=== PATIENT | male | born 1930 | race Caucasian/White ===

== ENCOUNTER 2018-06-19 10:51 | Emergency (ER) | payer MEDICARE, OTHER ==
[~2018-06-19] VITALS: Ht 177.8 cm; Wt 7.3 kg
[~2018-06-19 10:51] MED LIST: AML5T PO; GABA-339; GABA300C10 PO; HYDR-2601; LIS10T PO; OXY5T PO; WARF3TAB22 PO
[2018-06-19 12:10] LABS: Basophils # (auto) 0 uL; Basophils % (auto) 0.7 % (0.0-2.0); Eosinophils # (auto) 0 uL; Eosinophils % (auto) 0.4 % (0.0-7.0); Hematocrit 43.4 % (41.0-53.0); Hemoglobin 14.4 g/dL (13.5-17.5); Lymphocytes # (auto) 0.7 uL; Lymphocytes % (auto) 14.9 % (10.0-50.0); Mean Corpuscular Hemoglobin 30.1 pg (28.0-32.0); Mean Corpuscular Hgb Conc. 33.1 g/dL (32.0-36.0); Monocytes # (auto) 0.4 uL; Neutrophils # (auto) 3.5 uL; Platelet Count (auto) 209 10^3/uL (140-450); Red Blood Cells 4.77 10^6/uL (4.5-5.90); White Blood Cell 4.7 10^3/uL (4.4-10.8)
[2018-06-19 12:37] LABS: Alanine Aminotransferase 16 U/L (16-61); Albumin 4.2 g/dL (3.4-5.0); Alkaline Phosphatase 69 U/L (45-117); Anion Gap 5 (5-15); Aspartate Aminotransferase 34 U/L (15-37); BUN/Creatinine Ratio 20.4; Bilirubin, Total 0.5 mg/dL (0.2-1.0); Blood Urea Nitrogen 32 mg/dL (7-18); Calcium 8.5 mg/dL (8.5-10.1); Carbon Dioxide 24 mmol/L (21-32); Chloride 112 mmol/L (98-107); GFR African American 54 mL/min; GFR Non-African American 45 mL/min; Glucose 127 mg/dL (74-106); Magnesium 3.4 mg/dL (1.6-2.6); Potassium 3.9 mmol/L (3.5-5.1); Sodium 141 mmol/L (136-145); Total Protein 7.9 g/dL (6.4-8.2)
[2018-06-19 15:20] VITALS: BP 133/75
== END 2018-06-19 16:29 | disposition home or self-care (01) ==
LOC: EDUNIT# 10:51 → EDBD 10:51 → ER 10:56
DX: F41.9 Anxiety disorder, unspecified (principal); I48.91 Unspecified atrial fibrillation; I12.9 Hypertensive chronic kidney disease with stage 1 through stage 4 chronic kidney disease, or unspecified chronic kidney disease; N18.9 Chronic kidney disease, unspecified; G89.29 Other chronic pain; Z95.0 Presence of cardiac pacemaker
CPT/HCPCS: 36415; 80053; 83735; 84484; 85025; 93005

== ENCOUNTER 2018-08-13 04:30 | Emergency (ER) | payer OTHER ==
[~2018-08-13] VITALS: Ht 180.3 cm; Wt 77.1 kg
[2018-08-13 05:16] LABS: Basophils # (auto) 0.1 uL; Basophils % (auto) 0.8 % (0.0-2.0); Eosinophils # (auto) 0 uL; Eosinophils % (auto) 0.6 % (0.0-7.0); Hematocrit 42.1 % (41.0-53.0); Hemoglobin 14.2 g/dL (13.5-17.5); Lymphocytes # (auto) 0.9 uL; Lymphocytes % (auto) 11.9 % (10.0-50.0); Mean Corpuscular Hemoglobin 30.2 pg (28.0-32.0); Mean Corpuscular Hgb Conc. 33.6 g/dL (32.0-36.0); Mean Corpuscular Volume 89.8 fL (80.0-100.0); Monocytes # (auto) 0.6 uL; Monocytes % (auto) 7.3 % (0.0-12.0); Neutrophils # (auto) 6.2 uL; Neutrophils % (auto) 79.4 % (37.0-80.0); Platelet Count (auto) 321 10^3/uL (140-450); Red Blood Cells 4.69 10^6/uL (4.5-5.90); Red Cell Distribution Width 14.1 % (11.8-14.3); White Blood Cell 7.9 10^3/uL (4.4-10.8)
[2018-08-13 05:31] LABS: Alanine Aminotransferase 43 U/L (16-61); Albumin 3.4 g/dL (3.4-5.0); Anion Gap 9 (5-15); Aspartate Aminotransferase 40 U/L (15-37); BUN/Creatinine Ratio 15.4; Blood Urea Nitrogen 12 mg/dL (7-18); Calcium 8.7 mg/dL (8.5-10.1); Carbon Dioxide 29 mmol/L (21-32); Chloride 104 mmol/L (98-107); GFR African American 121 mL/min; GFR Non-African American 100 mL/min; Glucose 100 mg/dL (74-106); Magnesium 2.1 mg/dL (1.6-2.6); Potassium 3.4 mmol/L (3.5-5.1); Sodium 142 mmol/L (136-145)
[2018-08-13 05:36] LABS: Alkaline Phosphatase 197 U/L (45-117); Bilirubin, Total 1.2 mg/dL (0.2-1.0); Total Protein 7.4 g/dL (6.4-8.2)
[2018-08-13 05:45] LABS: Partial Thromboplastin Time 26.2 sec (23.78-33.04); Prothrombin Time 10.7 sec (9.27-12.13)
[2018-08-13] MEDS ORDERED: SODIUM CHLORIDE 0.9% 500 ML IV ONE (06:45)
[2018-08-13 06:58] VITALS: BP 144/74
[2018-08-13] MEDS ORDERED: HYDROcodone-ACET 10/325MG TAB PO ONE (07:15)
== END 2018-08-13 08:57 | disposition home or self-care (01) ==
LOC: ER 04:30 → EDBD 04:30 → ER 08:57
DX: M54.9 Dorsalgia, unspecified (principal); I48.91 Unspecified atrial fibrillation; M19.90 Unspecified osteoarthritis, unspecified site; K21.9 Gastro-esophageal reflux disease without esophagitis; I12.9 Hypertensive chronic kidney disease with stage 1 through stage 4 chronic kidney disease, or unspecified chronic kidney disease; N18.9 Chronic kidney disease, unspecified; Z79.899 Other long term (current) drug therapy; Z79.01 Long term (current) use of anticoagulants
CPT/HCPCS: 36415; 71045; 80053; 83735; 83880; 84484; 85025; 85610; 85730; 94761

== ENCOUNTER 2018-09-28 05:22 | Emergency (ER) | payer OTHER ==
[~2018-09-28] VITALS: Ht 177.8 cm; Wt 72.6 kg
[2018-09-28 06:27] LABS: Basophils # (auto) 0 uL; Basophils % (auto) 0.7 % (0.0-2.0); Eosinophils # (auto) 0.1 uL; Eosinophils % (auto) 2.3 % (0.0-7.0); Hemoglobin 15.1 g/dL (13.5-17.5); Lymphocytes # (auto) 0.9 uL; Mean Corpuscular Hemoglobin 30.1 pg (28.0-32.0); Mean Corpuscular Hgb Conc. 33.5 g/dL (32.0-36.0); Mean Corpuscular Volume 89.7 fL (80.0-100.0); Monocytes # (auto) 0.6 uL; Monocytes % (auto) 12.8 % (0.0-12.0); Neutrophils # (auto) 3.2 uL; Neutrophils % (auto) 66.2 % (37.0-80.0); Nucleated Red Blood Cells % 0.1 %; Platelet Count (auto) 242 10^3/uL (140-450); Red Blood Cells 5.01 10^6/uL (4.5-5.90); Red Cell Distribution Width 13.3 % (11.8-14.3); White Blood Cell 4.9 10^3/uL (4.4-10.8)
[2018-09-28 06:42] LABS: Albumin 4.2 g/dL (3.4-5.0); Anion Gap 8 (5-15); Blood Urea Nitrogen 17 mg/dL (7-18); Calcium 8.9 mg/dL (8.5-10.1); Carbon Dioxide 27 mmol/L (21-32); Chloride 108 mmol/L (98-107); Glucose 82 mg/dL (74-106); Magnesium 2.7 mg/dL (1.6-2.6); Potassium 3.7 mmol/L (3.5-5.1); Sodium 143 mmol/L (136-145)
[2018-09-28 06:47] LABS: Alanine Aminotransferase 20 U/L (16-61); Alkaline Phosphatase 129 U/L (45-117); Aspartate Aminotransferase 20 U/L (15-37); BUN/Creatinine Ratio 17.5; Bilirubin, Total 0.7 mg/dL (0.2-1.0); GFR African American 94 mL/min; GFR Non-African American 78 mL/min; Total Protein 7.7 g/dL (6.4-8.2)
[2018-09-28 06:55] LABS: INR 1.05 (0.9-1.15); Partial Thromboplastin Time 28.9 sec (23.78-33.04); Prothrombin Time 11.2 sec (9.27-12.13)
[2018-09-28 07:37] VITALS: BP 151/49
== END 2018-09-28 08:12 | disposition home or self-care (01) ==
LOC: ER 05:22
DX: F41.9 Anxiety disorder, unspecified (principal); I10 Essential (primary) hypertension; I48.91 Unspecified atrial fibrillation; G89.4 Chronic pain syndrome; K21.9 Gastro-esophageal reflux disease without esophagitis; M19.90 Unspecified osteoarthritis, unspecified site; Z96.89 Presence of other specified functional implants; Z79.899 Other long term (current) drug therapy
CPT/HCPCS: 36415; 71045; 80053; 83735; 83880; 84443; 84484; 85025; 85379; 85610; 85730; 93005

== ENCOUNTER 2018-10-09 22:28 | Inpatient (IN) | payer OTHER ==
[~2018-10-09] VITALS: Ht 180.3 cm; Wt 78.8 kg
[2018-10-09] MEDS ORDERED: LORazepam 0.5 MG TAB PO ONE (23:45)
[2018-10-10 00:06] LABS: Basophils # (auto) 0 uL; Basophils % (auto) 0.8 % (0.0-2.0); Eosinophils # (auto) 0.1 uL; Eosinophils % (auto) 1.4 % (0.0-7.0); Hematocrit 40.6 % (41.0-53.0); Hemoglobin 13.9 g/dL (13.5-17.5); Lymphocytes # (auto) 1.1 uL; Lymphocytes % (auto) 23.2 % (10.0-50.0); Mean Corpuscular Hemoglobin 30.3 pg (28.0-32.0); Mean Corpuscular Hgb Conc. 34.2 g/dL (32.0-36.0); Mean Corpuscular Volume 88.6 fL (80.0-100.0); Monocytes # (auto) 0.5 uL; Monocytes % (auto) 10.7 % (0.0-12.0); Neutrophils # (auto) 3.2 uL; Neutrophils % (auto) 63.9 % (37.0-80.0); Platelet Count (auto) 197 10^3/uL (140-450); Red Blood Cells 4.59 10^6/uL (4.5-5.90); Red Cell Distribution Width 13.1 % (11.8-14.3); White Blood Cell 4.9 10^3/uL (4.4-10.8)
[2018-10-10 00:25] LABS: Alanine Aminotransferase 16 U/L (16-61); Albumin 3.9 g/dL (3.4-5.0); Anion Gap 6 (5-15); Aspartate Aminotransferase 18 U/L (15-37); BUN/Creatinine Ratio 20.3; Blood Urea Nitrogen 25 mg/dL (7-18); Calcium 8.1 mg/dL (8.5-10.1); Carbon Dioxide 23 mmol/L (21-32); Chloride 112 mmol/L (98-107); GFR African American 72 mL/min; GFR Non-African American 59 mL/min; Glucose 92 mg/dL (74-106); Magnesium 2.5 mg/dL (1.6-2.6); Potassium 3.7 mmol/L (3.5-5.1); Sodium 141 mmol/L (136-145)
[2018-10-10 00:42] LABS: Alkaline Phosphatase 90 U/L (45-117); Bilirubin, Total 0.4 mg/dL (0.2-1.0); Total Protein 7.3 g/dL (6.4-8.2)
[2018-10-10] MEDS ORDERED: LEVOFLOXACIN 750MG 150 ML IV ONE (02:15)
[2018-10-10] MEDS ORDERED: ACETAMINOPHEN 500 MG TAB PO PRN (06:45)
[2018-10-10 07:17] LABS: Basophils # (auto) 0 uL; Basophils % (auto) 0.8 % (0.0-2.0); Eosinophils # (auto) 0.1 uL; Eosinophils % (auto) 1.3 % (0.0-7.0); Hematocrit 39.9 % (41.0-53.0); Hemoglobin 13.4 g/dL (13.5-17.5); Lymphocytes # (auto) 0.8 uL; Lymphocytes % (auto) 18.2 % (10.0-50.0); Mean Corpuscular Hemoglobin 29.9 pg (28.0-32.0); Mean Corpuscular Hgb Conc. 33.6 g/dL (32.0-36.0); Monocytes # (auto) 0.4 uL; Monocytes % (auto) 9.7 % (0.0-12.0); Neutrophils # (auto) 3.1 uL; Nucleated Red Blood Cells % 0.1 %; Platelet Count (auto) 190 10^3/uL (140-450); Red Blood Cells 4.49 10^6/uL (4.5-5.90); Red Cell Distribution Width 13.3 % (11.8-14.3); White Blood Cell 4.5 10^3/uL (4.4-10.8)
[2018-10-10 07:42] LABS: INR 1.27 (0.9-1.15); Partial Thromboplastin Time 31.9 sec (23.78-33.04); Prothrombin Time 13.4 sec (9.27-12.13)
[2018-10-10 08:59] VITALS: BP 149/78
[2018-10-10] MEDS: LACTULOSE 20Gm/30ML SOLN PO PRN (09:36)
[2018-10-10] MEDS: cefTRIAXone 1GM/50ML D5W 50 ML IV SCH (09:37)
[2018-10-10] MEDS: LISINOPRIL 10 MG TAB PO SCH (09:37)
[2018-10-10] MEDS: AZITHROMYCIN 500MG/ 250ML 250 ML IV SCH (09:38)
[2018-10-10] MEDS ORDERED: amLODIPine BESYLATE 5 MG TAB PO SCH (10:00)
[2018-10-10 12:23] VITALS: BP 138/76
[2018-10-10] MEDS: HYDROcodone-ACET 5/325MG TAB PO PRN (15:22)
[2018-10-10 16:35] VITALS: BP 138/76
[2018-10-10] MEDS ORDERED: WARFARIN SODIUM 5 MG TAB PO ONE (17:00)
[2018-10-10 17:18] LABS: Urine Bacteria NONE SEEN /hpf (None Seen); Urine Blood Negative /uL (Negative); Urine Hyaline Cast FEW /lpf (0 - 2); Urine Mucus FEW (None Seen); Urine Specific Gravity 1.022 (1.001-1.035); Urine WBC 1 /hpf (0 - 3)
[2018-10-10 17:24] LABS: Amphetamine Screen, Urine NEGATIVE (NEGATIVE); Barbiturate Scree,Urine NEGATIVE (NEGATIVE); Benzodiazephine Screen, Urine NEGATIVE (NEGATIVE); Cannabinoid Screen, Urine NEGATIVE (NEGATIVE); Cocaine Screen, Urine NEGATIVE (NEGATIVE); Opiate Scree,Urine POSITIVE (NEGATIVE); Phencyclidine Screen, Urine NEGATIVE (NEGATIVE)
[2018-10-10 17:49] LABS: Alcohol, Urine < 3.0 mg/dL (0-5)
[2018-10-10] MEDS: GABAPENTIN 400 MG CAP PO SCH (21:33)
[2018-10-10 22:00] VITALS: BP 119/67
[2018-10-11 05:00] VITALS: BP 140/61
[2018-10-11] MEDS: GABAPENTIN 400 MG CAP PO SCH ×3 (05:44→22:15)
[2018-10-11 06:19] LABS: INR 1.52 (0.9-1.15); Partial Thromboplastin Time 34.5 sec (23.78-33.04); Prothrombin Time 15.9 sec (9.27-12.13)
[2018-10-11 09:04] VITALS: BP 100/62
[2018-10-11] MEDS: cefTRIAXone 1GM/50ML D5W 50 ML IV SCH (10:30)
[2018-10-11] MEDS: AZITHROMYCIN 500MG/ 250ML 250 ML IV SCH (11:24)
[2018-10-11] MEDS: amLODIPine BESYLATE 5 MG TAB PO SCH (11:25)
[2018-10-11] MEDS: LISINOPRIL 10 MG TAB PO SCH (11:26)
[2018-10-11 13:15] VITALS: BP 112/71
[2018-10-11 16:51] VITALS: BP 125/78
[2018-10-11] MEDS ORDERED: WARFARIN SODIUM 2 MG TAB PO ONE (17:00)
[2018-10-11 22:00] VITALS: BP 110/71
[2018-10-12 05:07] VITALS: BP 102/63
[2018-10-12 05:36] LABS: Basophils # (auto) 0 uL; Basophils % (auto) 0.4 % (0.0-2.0); Eosinophils # (auto) 0.1 uL; Hematocrit 40.1 % (41.0-53.0); Hemoglobin 13.8 g/dL (13.5-17.5); Lymphocytes # (auto) 0.8 uL; Lymphocytes % (auto) 13.6 % (10.0-50.0); Mean Corpuscular Hemoglobin 30.5 pg (28.0-32.0); Mean Corpuscular Hgb Conc. 34.5 g/dL (32.0-36.0); Mean Corpuscular Volume 88.4 fL (80.0-100.0); Monocytes # (auto) 0.6 uL; Monocytes % (auto) 10.2 % (0.0-12.0); Neutrophils # (auto) 4.5 uL; Neutrophils % (auto) 74.8 % (37.0-80.0); Platelet Count (auto) 181 10^3/uL (140-450); Red Blood Cells 4.53 10^6/uL (4.5-5.90); Red Cell Distribution Width 13.6 % (11.8-14.3)
[2018-10-12 05:45] LABS: INR 1.59 (0.9-1.15); Partial Thromboplastin Time 34.3 sec (23.78-33.04); Prothrombin Time 16.6 sec (9.27-12.13)
[2018-10-12] MEDS: GABAPENTIN 400 MG CAP PO SCH ×3 (06:19→21:45)
[2018-10-12 08:35] VITALS: BP 132/70
[2018-10-12] MEDS ORDERED: PANT40T PO (08:53)
[2018-10-12] MEDS ORDERED: AZIT250T7 PO (08:53)
[2018-10-12] MEDS ORDERED: PANTOPRAZOLE 40 MG TAB PO ONE (09:00)
[2018-10-12 09:46] VITALS: BP 132/70
[2018-10-12] MEDS: LISINOPRIL 10 MG TAB PO SCH (09:50)
[2018-10-12] MEDS: amLODIPine BESYLATE 5 MG TAB PO SCH (09:50)
[2018-10-12] MEDS: HYDROcodone-ACET 5/325MG TAB PO PRN ×2 (09:55→20:00)
[2018-10-12] MEDS ORDERED: AZITHROMYCIN 250 MG TAB PO SCH (10:00)
[2018-10-12] MEDS: LACTULOSE 20Gm/30ML SOLN PO PRN (10:45)
[2018-10-12 13:00] VITALS: BP 124/83
[2018-10-12] MEDS ORDERED: IODIXANOL 320MG/ML 100ML BTL IV ONE (13:02)
[2018-10-12] MEDS ORDERED: GASTROGRAFIN 30 ML SOL ONE (13:07)
[2018-10-12] MEDS ORDERED: SODIUM CHLORIDE 0.9% 1,000 ML IV ONE (13:30)
[2018-10-12] MEDS: MORPHINE SULFATE 4 MG/ML SYR/VIAL IV PRN ×2 (13:38→18:37)
[2018-10-12 14:19] LABS: Basophils # (auto) 0 uL; Basophils % (auto) 0.1 % (0.0-2.0); Eosinophils # (auto) 0 uL; Hematocrit 42.2 % (41.0-53.0); Hemoglobin 14.3 g/dL (13.5-17.5); Lymphocytes # (auto) 0.3 uL; Lymphocytes % (auto) 2.8 % (10.0-50.0); Mean Corpuscular Hemoglobin 29.9 pg (28.0-32.0); Mean Corpuscular Hgb Conc. 33.9 g/dL (32.0-36.0); Mean Corpuscular Volume 88.1 fL (80.0-100.0); Monocytes # (auto) 0.9 uL; Monocytes % (auto) 7.4 % (0.0-12.0); Neutrophils # (auto) 10.8 uL; Neutrophils % (auto) 89.7 % (37.0-80.0); Platelet Count (auto) 205 10^3/uL (140-450); Red Blood Cells 4.79 10^6/uL (4.5-5.90); Red Cell Distribution Width 13.5 % (11.8-14.3); White Blood Cell 12.1 10^3/uL (4.4-10.8)
[2018-10-12 14:38] LABS: Albumin 4.2 g/dL (3.4-5.0); BUN/Creatinine Ratio 31.6; Calcium 8.8 mg/dL (8.5-10.1); Potassium 3.6 mmol/L (3.5-5.1)
[2018-10-12 14:41] LABS: Total Protein 7.6 g/dL (6.4-8.2)
[2018-10-12 16:35] VITALS: BP 130/80
[2018-10-12] MEDS ORDERED: WARFARIN SODIUM 5 MG TAB PO ONE (17:00)
[2018-10-12] MEDS: SOD CHL 0.9%/ KCL 20MEQ 1,000 ML IV SCH (17:44)
[2018-10-12] MEDS ORDERED: cefTRIAXone 1GM/50ML D5W 50 ML IV ONE (17:45)
[2018-10-12] MEDS: metroNIDAZOLE 500MG/100ML 100 ML IV SCH (21:45)
[2018-10-12 22:28] VITALS: BP 120/60
[2018-10-13] VITALS (9 sets, daily range): BP systolic 109–140; BP diastolic 60–77
[2018-10-13 05:33] LABS: Basophils # (auto) 0 uL; Basophils % (auto) 0.1 % (0.0-2.0); Eosinophils # (auto) 0 uL; Hematocrit 40.5 % (41.0-53.0); Lymphocytes # (auto) 0.7 uL; Lymphocytes % (auto) 7.1 % (10.0-50.0); Mean Corpuscular Hemoglobin 30.5 pg (28.0-32.0); Mean Corpuscular Hgb Conc. 34.5 g/dL (32.0-36.0); Mean Corpuscular Volume 88.2 fL (80.0-100.0); Neutrophils # (auto) 7.5 uL; Neutrophils % (auto) 81.8 % (37.0-80.0); Nucleated Red Blood Cells % 0.1 %; Platelet Count (auto) 181 10^3/uL (140-450); Red Blood Cells 4.59 10^6/uL (4.5-5.90); Red Cell Distribution Width 13.3 % (11.8-14.3); White Blood Cell 9.2 10^3/uL (4.4-10.8)
[2018-10-13] MEDS: GABAPENTIN 400 MG CAP PO SCH ×3 (05:34→21:42)
[2018-10-13] MEDS: metroNIDAZOLE 500MG/100ML 100 ML IV SCH ×3 (05:34→21:42)
[2018-10-13 05:43] LABS: INR 2.2 (0.9-1.15); Prothrombin Time 22.5 sec (9.27-12.13)
[2018-10-13 05:47] LABS: Calcium 8.7 mg/dL (8.5-10.1); Potassium 3.6 mmol/L (3.5-5.1)
[2018-10-13 05:51] LABS: Albumin 3.9 g/dL (3.4-5.0); BUN/Creatinine Ratio 27.1
[2018-10-13 05:53] LABS: Bilirubin, Total 5.1 mg/dL (0.2-1.0); Total Protein 7.1 g/dL (6.4-8.2)
[2018-10-13] MEDS: SOD CHL 0.9%/ KCL 20MEQ 1,000 ML IV SCH ×2 (06:50→21:51)
[2018-10-13] MEDS: amLODIPine BESYLATE 5 MG TAB PO SCH (09:30)
[2018-10-13] MEDS: LISINOPRIL 10 MG TAB PO SCH (09:30)
[2018-10-13] MEDS: HYDROcodone-ACET 5/325MG TAB PO PRN ×2 (09:31→16:18)
[2018-10-13] MEDS: cefTRIAXone 1GM/50ML D5W 50 ML IV SCH (09:31)
[2018-10-13] MEDS ORDERED: PANTOPRAZOLE 40 MG/10 ML VIAL IV ONE (11:15)
[2018-10-14] VITALS (9 sets, daily range): BP systolic 121–138; BP diastolic 55–101
[2018-10-14] MEDS: HYDROcodone-ACET 5/325MG TAB PO PRN ×2 (00:06→03:10)
[2018-10-14] MEDS: GABAPENTIN 400 MG CAP PO SCH ×3 (05:31→21:20)
[2018-10-14] MEDS: metroNIDAZOLE 500MG/100ML 100 ML IV SCH ×3 (05:31→21:19)
[2018-10-14 05:50] LABS: Basophils # (auto) 0 uL; Basophils % (auto) 0.2 % (0.0-2.0); Eosinophils # (auto) 0 uL; Eosinophils % (auto) 0.2 % (0.0-7.0); Hematocrit 37.8 % (41.0-53.0); Lymphocytes # (auto) 0.4 uL; Lymphocytes % (auto) 6.4 % (10.0-50.0); Mean Corpuscular Hemoglobin 30.4 pg (28.0-32.0); Mean Corpuscular Hgb Conc. 34.5 g/dL (32.0-36.0); Mean Corpuscular Volume 88.2 fL (80.0-100.0); Monocytes # (auto) 0.8 uL; Monocytes % (auto) 11.7 % (0.0-12.0); Neutrophils # (auto) 5.7 uL; Neutrophils % (auto) 81.5 % (37.0-80.0); Platelet Count (auto) 153 10^3/uL (140-450); Red Blood Cells 4.29 10^6/uL (4.5-5.90); Red Cell Distribution Width 13.6 % (11.8-14.3)
[2018-10-14 06:04] LABS: Albumin 3.4 g/dL (3.4-5.0); Calcium 8.3 mg/dL (8.5-10.1); Potassium 3.4 mmol/L (3.5-5.1)
[2018-10-14 06:07] LABS: BUN/Creatinine Ratio 20.3
[2018-10-14 06:10] LABS: Total Protein 6.4 g/dL (6.4-8.2)
[2018-10-14 06:13] LABS: INR 2.24 (0.9-1.15); Partial Thromboplastin Time 38.7 sec (23.78-33.04); Prothrombin Time 22.9 sec (9.27-12.13)
[2018-10-14] MEDS: SOD CHL 0.9%/ KCL 20MEQ 1,000 ML IV SCH ×2 (09:15→22:35)
[2018-10-14] MEDS: cefTRIAXone 1GM/50ML D5W 50 ML IV SCH (09:22)
[2018-10-14] MEDS: LISINOPRIL 10 MG TAB PO SCH (09:22)
[2018-10-14] MEDS: PANTOPRAZOLE 40 MG/10 ML VIAL IV SCH (09:22)
[2018-10-14] MEDS: amLODIPine BESYLATE 5 MG TAB PO SCH (09:23)
[2018-10-14] MEDS: MORPHINE SULFATE 4 MG/ML SYR/VIAL IV PRN ×3 (10:35→23:04)
[2018-10-15] VITALS (15 sets, daily range): BP systolic 106–147; BP diastolic 53–89
[2018-10-15] MEDS: SOD CHL 0.9%/ KCL 20MEQ 1,000 ML IV SCH (04:59)
[2018-10-15 05:59] LABS: Basophils # (auto) 0 uL; Basophils % (auto) 0.5 % (0.0-2.0); Eosinophils # (auto) 0 uL; Eosinophils % (auto) 0.7 % (0.0-7.0); Hematocrit 37.9 % (41.0-53.0); Hemoglobin 12.7 g/dL (13.5-17.5); Lymphocytes # (auto) 0.8 uL; Mean Corpuscular Hemoglobin 29.7 pg (28.0-32.0); Mean Corpuscular Hgb Conc. 33.6 g/dL (32.0-36.0); Mean Corpuscular Volume 88.5 fL (80.0-100.0); Monocytes # (auto) 0.8 uL; Monocytes % (auto) 13.4 % (0.0-12.0); Neutrophils # (auto) 4.6 uL; Neutrophils % (auto) 73.4 % (37.0-80.0); Platelet Count (auto) 158 10^3/uL (140-450); Red Blood Cells 4.28 10^6/uL (4.5-5.90); Red Cell Distribution Width 13.5 % (11.8-14.3); White Blood Cell 6.3 10^3/uL (4.4-10.8)
[2018-10-15] MEDS: metroNIDAZOLE 500MG/100ML 100 ML IV SCH ×3 (06:07→21:26)
[2018-10-15] MEDS: GABAPENTIN 400 MG CAP PO SCH ×3 (06:07→21:26)
[2018-10-15 06:14] LABS: Albumin 3.3 g/dL (3.4-5.0); Calcium 8.5 mg/dL (8.5-10.1); Potassium 3.2 mmol/L (3.5-5.1)
[2018-10-15 06:18] LABS: BUN/Creatinine Ratio 19.7; Bilirubin, Total 7.4 mg/dL (0.2-1.0); Total Protein 6.4 g/dL (6.4-8.2)
[2018-10-15] MEDS: PANTOPRAZOLE 40 MG/10 ML VIAL IV SCH (09:35)
[2018-10-15] MEDS: cefTRIAXone 1GM/50ML D5W 50 ML IV SCH (09:35)
[2018-10-15] MEDS: LISINOPRIL 10 MG TAB PO SCH (09:36)
[2018-10-15] MEDS: amLODIPine BESYLATE 5 MG TAB PO SCH (09:36)
[2018-10-15] MEDS: MORPHINE SULFATE 4 MG/ML SYR/VIAL IV PRN ×2 (09:44→19:37)
[2018-10-15] MEDS: HYDROcodone-ACET 5/325MG TAB PO PRN ×2 (13:37→21:47)
[2018-10-15 14:06] LABS: INR 2.06 (0.9-1.15); Partial Thromboplastin Time 39.7 sec (23.78-33.04); Prothrombin Time 21.2 sec (9.27-12.13)
[2018-10-15] MEDS ORDERED: LORazepam 0.5 MG TAB PO PRN (14:45)
[2018-10-15] MEDS: LORazepam 0.5 MG TAB PO PRN (15:14)
[2018-10-16] MEDS: LORazepam 0.5 MG TAB PO PRN ×2 (00:27→18:30)
[2018-10-16] MEDS: SOD CHL 0.9%/ KCL 20MEQ 1,000 ML IV SCH ×2 (02:03→14:35)
[2018-10-16] MEDS: MORPHINE SULFATE 4 MG/ML SYR/VIAL IV PRN ×3 (03:58→20:33)
[2018-10-16 04:42] VITALS: BP 123/67
[2018-10-16] MEDS: GABAPENTIN 400 MG CAP PO SCH ×4 (05:24→21:25)
[2018-10-16] MEDS: metroNIDAZOLE 500MG/100ML 100 ML IV SCH ×4 (05:24→21:25)
[2018-10-16 06:42] LABS: Basophils # (auto) 0 uL; Basophils % (auto) 0.5 % (0.0-2.0); Eosinophils # (auto) 0.1 uL; Eosinophils % (auto) 2.4 % (0.0-7.0); Hematocrit 37.6 % (41.0-53.0); Lymphocytes # (auto) 0.6 uL; Lymphocytes % (auto) 13.5 % (10.0-50.0); Mean Corpuscular Hemoglobin 30.6 pg (28.0-32.0); Mean Corpuscular Hgb Conc. 34.5 g/dL (32.0-36.0); Mean Corpuscular Volume 88.7 fL (80.0-100.0); Monocytes # (auto) 0.6 uL; Monocytes % (auto) 13.3 % (0.0-12.0); Neutrophils # (auto) 3.2 uL; Neutrophils % (auto) 70.3 % (37.0-80.0); Platelet Count (auto) 184 10^3/uL (140-450); Red Blood Cells 4.24 10^6/uL (4.5-5.90); Red Cell Distribution Width 13.6 % (11.8-14.3); White Blood Cell 4.6 10^3/uL (4.4-10.8)
[2018-10-16 06:47] LABS: INR 1.97 (0.9-1.15); Partial Thromboplastin Time 38.8 sec (23.78-33.04); Prothrombin Time 20.3 sec (9.27-12.13)
[2018-10-16] MEDS: HYDROcodone-ACET 5/325MG TAB PO PRN (06:50)
[2018-10-16 06:51] LABS: Potassium 3.1 mmol/L (3.5-5.1)
[2018-10-16 06:56] LABS: Albumin 3.5 g/dL (3.4-5.0); BUN/Creatinine Ratio 14.7; Bilirubin, Total 9.7 mg/dL (0.2-1.0); Calcium 8.7 mg/dL (8.5-10.1); Total Protein 6.6 g/dL (6.4-8.2)
[2018-10-16 08:00] VITALS: BP 124/69
[2018-10-16 08:23] VITALS: BP 124/69
[2018-10-16] MEDS ORDERED: HYDROcodone-ACET 5/325MG TAB PO PRN (09:15)
[2018-10-16] MEDS: amLODIPine BESYLATE 5 MG TAB PO SCH (09:30)
[2018-10-16] MEDS: PANTOPRAZOLE 40 MG/10 ML VIAL IV SCH (09:30)
[2018-10-16] MEDS: cefTRIAXone 1GM/50ML D5W 50 ML IV SCH (09:30)
[2018-10-16] MEDS: LISINOPRIL 10 MG TAB PO SCH (09:31)
[2018-10-16] MEDS ORDERED: MIDAZOLAM HCL 1MG/1ML-2 ML VIAL ONE (12:04)
[2018-10-16] MEDS ORDERED: fentaNYL CITRATE 100 MCG/2 ML VL ONE (12:04)
[2018-10-16] MEDS ORDERED: SUCCINYLCHOLINE CHLORIDE 20 MG/ML 10ML VIAL IV ONE (12:15)
[2018-10-16] MEDS ORDERED: ETOMIDATE (2MG/ML) 20ML VIAL IV ONE (12:25)
[2018-10-16] MEDS ORDERED: DEXAMETHASONE SOD PHOS 10MG/1ML VIAL INJ ONE (12:25)
[2018-10-16 12:26] VITALS: BP 130/76
[2018-10-16] MEDS ORDERED: IOHEXOL 300 MG/ML 100ML BOTTLE IJ ONE (12:26)
[2018-10-16] MEDS ORDERED: PHENYLEPHRINE HCL 10 MG/ML VL ONE (13:21)
[2018-10-16] MEDS ORDERED: HYDROmorphone HCL 2 MG/ML VL IV PRN (14:15)
[2018-10-16] MEDS ORDERED: MORPHINE SULFATE 4 MG/ML SYR/VIAL IV PRN (14:15)
[2018-10-16] MEDS ORDERED: KETOROLAC TROMETH 30 MG/ML 1ML VIAL IV ONE (14:15)
[2018-10-16] MEDS ORDERED: MIDAZOLAM HCL 1MG/1ML-2 ML VIAL IV PRN (14:15)
[2018-10-16] MEDS ORDERED: ePHEDrine SULFATE 50 MG/ML AMP IV PRN (14:15)
[2018-10-16] MEDS ORDERED: ONDANSETRON HCL 4 MG/2 ML VIAL IV ONE (14:15)
[2018-10-16] MEDS ORDERED: LABETALOL HCL 5 MG/ML 4ML SYRINGE IV PRN (14:15)
[2018-10-16] MEDS ORDERED: PHYTONADIONE (VIT K)10 MG/ML 1ML VIAL SUBCUT ONE (15:15)
[2018-10-16] MEDS ORDERED: MORPHINE SULFATE 4 MG/ML SYR/VIAL IV ONE (16:00)
[2018-10-16 16:32] VITALS: BP 134/73
[2018-10-16 22:00] VITALS: BP 125/75
[2018-10-17] MEDS: MORPHINE SULFATE 4 MG/ML SYR/VIAL IV PRN ×5 (00:43→20:54)
[2018-10-17] MEDS: SOD CHL 0.9%/ KCL 20MEQ 1,000 ML IV SCH ×2 (04:06→17:15)
[2018-10-17 05:00] VITALS: BP 123/70
[2018-10-17] MEDS: metroNIDAZOLE 500MG/100ML 100 ML IV SCH ×3 (05:45→21:47)
[2018-10-17] MEDS: GABAPENTIN 400 MG CAP PO SCH ×4 (05:45→21:47)
[2018-10-17 07:00] LABS: Basophils # (auto) 0 uL; Basophils % (auto) 0.1 % (0.0-2.0); Eosinophils # (auto) 0 uL; Hemoglobin 12.4 g/dL (13.5-17.5); Lymphocytes # (auto) 0.3 uL; Lymphocytes % (auto) 13.3 % (10.0-50.0); Mean Corpuscular Hemoglobin 30.6 pg (28.0-32.0); Mean Corpuscular Hgb Conc. 34.5 g/dL (32.0-36.0); Mean Corpuscular Volume 88.6 fL (80.0-100.0); Monocytes # (auto) 0.2 uL; Monocytes % (auto) 6.6 % (0.0-12.0); Nucleated Red Blood Cells % 0.2 %; Platelet Count (auto) 180 10^3/uL (140-450); Red Blood Cells 4.06 10^6/uL (4.5-5.90); Red Cell Distribution Width 13.6 % (11.8-14.3); White Blood Cell 2.5 10^3/uL (4.4-10.8)
[2018-10-17 07:14] LABS: INR 1.3 (0.9-1.15); Partial Thromboplastin Time 32.8 sec (23.78-33.04); Prothrombin Time 13.7 sec (9.27-12.13)
[2018-10-17 07:23] LABS: Calcium 8.3 mg/dL (8.5-10.1); Potassium 3.4 mmol/L (3.5-5.1)
[2018-10-17 07:25] LABS: Bilirubin, Total 7.2 mg/dL (0.2-1.0)
[2018-10-17 07:28] LABS: BUN/Creatinine Ratio 31.1; Bilirubin, Total 7.1 mg/dL (0.2-1.0); Total Protein 6.1 g/dL (6.4-8.2)
[2018-10-17 08:00] VITALS: BP 131/76
[2018-10-17] MEDS: LORazepam 0.5 MG TAB PO PRN (08:38)
[2018-10-17] MEDS: cefTRIAXone 1GM/50ML D5W 50 ML IV SCH (08:38)
[2018-10-17] MEDS: amLODIPine BESYLATE 5 MG TAB PO SCH (09:46)
[2018-10-17] MEDS: LISINOPRIL 10 MG TAB PO SCH (09:46)
[2018-10-17] MEDS: PANTOPRAZOLE 40 MG/10 ML VIAL IV SCH (09:46)
[2018-10-17 11:42] VITALS: BP 130/80
[2018-10-17 16:32] VITALS: BP 142/81
[2018-10-17 22:00] VITALS: BP 110/63
[2018-10-18] MEDS: MORPHINE SULFATE 4 MG/ML SYR/VIAL IV PRN ×4 (02:44→22:45)
[2018-10-18] MEDS: SOD CHL 0.9%/ KCL 20MEQ 1,000 ML IV SCH ×2 (02:56→20:44)
[2018-10-18 05:00] VITALS: BP 110/56
[2018-10-18] MEDS: metroNIDAZOLE 500MG/100ML 100 ML IV SCH ×4 (05:37→22:44)
[2018-10-18] MEDS: GABAPENTIN 400 MG CAP PO SCH ×4 (05:47→22:44)
[2018-10-18 05:56] LABS: Basophils # (auto) 0 uL; Basophils % (auto) 0.1 % (0.0-2.0); Eosinophils # (auto) 0 uL; Eosinophils % (auto) 0.5 % (0.0-7.0); Hematocrit 33.2 % (41.0-53.0); Hemoglobin 11.3 g/dL (13.5-17.5); Lymphocytes # (auto) 0.6 uL; Lymphocytes % (auto) 12.1 % (10.0-50.0); Mean Corpuscular Hemoglobin 30.2 pg (28.0-32.0); Mean Corpuscular Volume 88.7 fL (80.0-100.0); Monocytes # (auto) 0.5 uL; Monocytes % (auto) 9.7 % (0.0-12.0); Neutrophils # (auto) 3.9 uL; Neutrophils % (auto) 77.6 % (37.0-80.0); Nucleated Red Blood Cells % 0.1 %; Platelet Count (auto) 195 10^3/uL (140-450); Red Blood Cells 3.74 10^6/uL (4.5-5.90); Red Cell Distribution Width 13.6 % (11.8-14.3)
[2018-10-18 06:18] LABS: Albumin 2.9 g/dL (3.4-5.0); Calcium 7.8 mg/dL (8.5-10.1); Potassium 3.1 mmol/L (3.5-5.1)
[2018-10-18 06:20] LABS: BUN/Creatinine Ratio 42.6
[2018-10-18 06:22] LABS: Bilirubin, Total 4.7 mg/dL (0.2-1.0); Total Protein 5.7 g/dL (6.4-8.2)
[2018-10-18 08:00] VITALS: BP 142/59
[2018-10-18 09:00] VITALS: BP 114/59
[2018-10-18] MEDS ORDERED: POTASSIUM CHLORIDE 40 MEQ, LIDOCAINE 1% (LOCAL ANESTH.) 4 ML in SODIUM CHL 0.9% 100 ML IV ONE (09:15)
[2018-10-18] MEDS: LISINOPRIL 10 MG TAB PO SCH (09:16)
[2018-10-18] MEDS: PANTOPRAZOLE 40 MG/10 ML VIAL IV SCH (09:17)
[2018-10-18] MEDS: amLODIPine BESYLATE 5 MG TAB PO SCH (09:17)
[2018-10-18] MEDS: cefTRIAXone 1GM/50ML D5W 50 ML IV SCH (09:17)
[2018-10-18 12:54] VITALS: BP 113/63
[2018-10-18] MEDS ORDERED: POTASSIUM CHL 20 Meq TABLET PO ONE (16:00)
[2018-10-18 17:00] VITALS: BP 124/68
[2018-10-18] MEDS: POTASSIUM CHL 20MEQ/100ML 100 ML IV SCH ×2 (18:07→20:43)
[2018-10-18] MEDS ORDERED: POTASSIUM CHL 20MEQ/100ML 100 ML IV ONE (20:42)
[2018-10-18 21:30] VITALS: BP 116/59
[2018-10-19] MEDS: MORPHINE SULFATE 4 MG/ML SYR/VIAL IV PRN ×2 (03:03→07:36)
[2018-10-19 05:00] VITALS: BP 120/75
[2018-10-19] MEDS: GABAPENTIN 400 MG CAP PO SCH ×3 (05:24→22:12)
[2018-10-19] MEDS: metroNIDAZOLE 500MG/100ML 100 ML IV SCH ×3 (05:24→22:12)
[2018-10-19 05:54] LABS: Basophils # (auto) 0 uL; Basophils % (auto) 0.8 % (0.0-2.0); Eosinophils # (auto) 0.1 uL; Eosinophils % (auto) 1.6 % (0.0-7.0); Hematocrit 33.9 % (41.0-53.0); Hemoglobin 11.6 g/dL (13.5-17.5); Lymphocytes # (auto) 0.7 uL; Lymphocytes % (auto) 18.5 % (10.0-50.0); Mean Corpuscular Hemoglobin 30.6 pg (28.0-32.0); Mean Corpuscular Hgb Conc. 34.2 g/dL (32.0-36.0); Mean Corpuscular Volume 89.4 fL (80.0-100.0); Monocytes # (auto) 0.6 uL; Monocytes % (auto) 14.3 % (0.0-12.0); Neutrophils # (auto) 2.5 uL; Neutrophils % (auto) 64.8 % (37.0-80.0); Nucleated Red Blood Cells % 0.3 %; Platelet Count (auto) 195 10^3/uL (140-450); Red Cell Distribution Width 14.1 % (11.8-14.3); White Blood Cell 3.9 10^3/uL (4.4-10.8)
[2018-10-19] MEDS: SOD CHL 0.9%/ KCL 20MEQ 1,000 ML IV SCH ×2 (06:05→09:15)
[2018-10-19 06:21] LABS: Potassium 3.5 mmol/L (3.5-5.1)
[2018-10-19 06:25] LABS: BUN/Creatinine Ratio 22.4; Bilirubin, Total 3.9 mg/dL (0.2-1.0); Total Protein 5.7 g/dL (6.4-8.2)
[2018-10-19 08:00] VITALS: BP 145/57
[2018-10-19] MEDS: amLODIPine BESYLATE 5 MG TAB PO SCH (09:01)
[2018-10-19] MEDS: cefTRIAXone 1GM/50ML D5W 50 ML IV SCH (09:01)
[2018-10-19] MEDS: PANTOPRAZOLE 40 MG/10 ML VIAL IV SCH (09:01)
[2018-10-19] MEDS: LISINOPRIL 10 MG TAB PO SCH (09:02)
[2018-10-19] MEDS ORDERED: ONDANSETRON HCL 4 MG/2 ML VIAL IV ONE (09:45)
[2018-10-19] MEDS ORDERED: ePHEDrine SULFATE 50 MG/ML AMP IV PRN (09:45)
[2018-10-19] MEDS ORDERED: LABETALOL HCL 5 MG/ML 4ML SYRINGE IV PRN ×2 (09:45)
[2018-10-19] MEDS ORDERED: KETOROLAC TROMETH 30 MG/ML 1ML VIAL IV ONE (09:45)
[2018-10-19] MEDS ORDERED: MORPHINE SULFATE 4 MG/ML SYR/VIAL IV PRN (09:45)
[2018-10-19] MEDS ORDERED: MIDAZOLAM HCL 1MG/1ML-2 ML VIAL IV PRN (09:45)
[2018-10-19] MEDS ORDERED: MIDAZOLAM HCL 1MG/1ML-2 ML VIAL ONE (09:50)
[2018-10-19] MEDS ORDERED: fentaNYL CITRATE 100 MCG/2 ML VL ONE (09:50)
[2018-10-19] MEDS ORDERED: MEPERIDINE HCL (50 MG/ML) 1 ML VIAL ONE (09:50)
[2018-10-19] MEDS ORDERED: MORPHINE SULFATE 4 MG/ML SYR/VIAL IV ONE (10:00)
[2018-10-19] MEDS ORDERED: DEXAMETHASONE SOD PHOS 10MG/1ML VIAL INJ ONE (10:06)
[2018-10-19] MEDS ORDERED: ETOMIDATE (2MG/ML) 20ML VIAL IV ONE (10:06)
[2018-10-19] MEDS ORDERED: PROPOFOL 10 MG/ML 20 ML IV ONE (10:06)
[2018-10-19] MEDS: HYDROmorphone HCL 2 MG/ML VL IV PRN ×4 (11:21→11:55)
[2018-10-19 12:00] VITALS: BP 128/89
[2018-10-19 16:00] VITALS: BP 128/64
[2018-10-19 20:00] VITALS: BP 100/59
[2018-10-19 21:08] VITALS: BP 100/59
[2018-10-20] VITALS (7 sets, daily range): BP systolic 100–146; BP diastolic 59–83
[2018-10-20] MEDS: HYDROcodone-ACET 5/325MG TAB PO PRN (03:23)
[2018-10-20 05:29] LABS: Basophils # (auto) 0 uL; Basophils % (auto) 0.1 % (0.0-2.0); Eosinophils # (auto) 0 uL; Hematocrit 36.9 % (41.0-53.0); Hemoglobin 12.4 g/dL (13.5-17.5); Lymphocytes # (auto) 0.5 uL; Lymphocytes % (auto) 10.6 % (10.0-50.0); Mean Corpuscular Hgb Conc. 33.5 g/dL (32.0-36.0); Mean Corpuscular Volume 89.5 fL (80.0-100.0); Monocytes # (auto) 0.4 uL; Neutrophils # (auto) 3.6 uL; Neutrophils % (auto) 80.3 % (37.0-80.0); Platelet Count (auto) 197 10^3/uL (140-450); Red Blood Cells 4.12 10^6/uL (4.5-5.90); Red Cell Distribution Width 13.8 % (11.8-14.3); White Blood Cell 4.4 10^3/uL (4.4-10.8)
[2018-10-20 05:40] LABS: Albumin 3.1 g/dL (3.4-5.0); Calcium 8.3 mg/dL (8.5-10.1); Potassium 3.9 mmol/L (3.5-5.1)
[2018-10-20 05:43] LABS: BUN/Creatinine Ratio 21.7; Bilirubin, Total 3.2 mg/dL (0.2-1.0)
[2018-10-20] MEDS: GABAPENTIN 400 MG CAP PO SCH ×3 (06:05→21:32)
[2018-10-20] MEDS: metroNIDAZOLE 500MG/100ML 100 ML IV SCH ×3 (06:15→21:33)
[2018-10-20] MEDS: cefTRIAXone 1GM/50ML D5W 50 ML IV SCH (08:51)
[2018-10-20] MEDS: MORPHINE SULFATE 4 MG/ML SYR/VIAL IV PRN ×3 (09:27→21:33)
[2018-10-20] MEDS: PANTOPRAZOLE 40 MG/10 ML VIAL IV SCH (09:31)
[2018-10-20] MEDS: amLODIPine BESYLATE 5 MG TAB PO SCH (09:33)
[2018-10-20] MEDS: LISINOPRIL 10 MG TAB PO SCH (09:33)
[2018-10-20 12:00] LABS: INR 1.07 (0.9-1.15); Partial Thromboplastin Time 26.8 sec (23.78-33.04); Prothrombin Time 11.4 sec (9.27-12.13)
[2018-10-20] MEDS ORDERED: ENOXAPARIN SOD 40 MG/0.4 ML SYRINGE SC ONE (13:30)
[2018-10-20] MEDS ORDERED: WARFARIN SODIUM 1 MG TAB PO ONE (17:00)
[2018-10-21] MEDS: HYDROcodone-ACET 5/325MG TAB PO PRN (01:32)
[2018-10-21 05:01] VITALS: BP 127/74
[2018-10-21 05:35] LABS: INR 1.11 (0.9-1.15); Partial Thromboplastin Time 27.3 sec (23.78-33.04); Prothrombin Time 11.8 sec (9.27-12.13)
[2018-10-21] MEDS: GABAPENTIN 400 MG CAP PO SCH ×3 (06:30→22:00)
[2018-10-21] MEDS: MORPHINE SULFATE 4 MG/ML SYR/VIAL IV PRN ×3 (06:30→16:15)
[2018-10-21] MEDS: metroNIDAZOLE 500MG/100ML 100 ML IV SCH ×3 (06:30→22:05)
[2018-10-21] MEDS: cefTRIAXone 1GM/50ML D5W 50 ML IV SCH (10:11)
[2018-10-21] MEDS: ENOXAPARIN SOD 40 MG/0.4 ML SYRINGE SC SCH (10:12)
[2018-10-21] MEDS: amLODIPine BESYLATE 5 MG TAB PO SCH (10:13)
[2018-10-21] MEDS: LISINOPRIL 10 MG TAB PO SCH (10:14)
[2018-10-21] MEDS: PANTOPRAZOLE 40 MG TAB PO SCH (10:14)
[2018-10-21] MEDS ORDERED: WARFARIN SODIUM 5 MG TAB PO ONE (17:00)
[2018-10-21] MEDS: LORazepam 0.5 MG TAB PO PRN (17:11)
[2018-10-21 22:00] VITALS: BP 150/87
[2018-10-22] MEDS: MORPHINE SULFATE 4 MG/ML SYR/VIAL IV PRN ×2 (03:13→07:52)
[2018-10-22 05:00] VITALS: BP 137/91
[2018-10-22] MEDS: metroNIDAZOLE 500MG/100ML 100 ML IV SCH (05:37)
[2018-10-22] MEDS: GABAPENTIN 400 MG CAP PO SCH ×4 (05:38→21:57)
[2018-10-22 06:39] LABS: Basophils # (auto) 0 uL; Basophils % (auto) 0.6 % (0.0-2.0); Eosinophils # (auto) 0.1 uL; Hematocrit 36.2 % (41.0-53.0); Hemoglobin 12.2 g/dL (13.5-17.5); Lymphocytes # (auto) 0.8 uL; Lymphocytes % (auto) 11.3 % (10.0-50.0); Mean Corpuscular Hemoglobin 30.1 pg (28.0-32.0); Mean Corpuscular Hgb Conc. 33.7 g/dL (32.0-36.0); Mean Corpuscular Volume 89.4 fL (80.0-100.0); Monocytes # (auto) 0.6 uL; Monocytes % (auto) 9.4 % (0.0-12.0); Neutrophils # (auto) 5.4 uL; Neutrophils % (auto) 77.7 % (37.0-80.0); Platelet Count (auto) 246 10^3/uL (140-450); Red Blood Cells 4.05 10^6/uL (4.5-5.90); Red Cell Distribution Width 13.6 % (11.8-14.3); White Blood Cell 6.9 10^3/uL (4.4-10.8)
[2018-10-22 06:51] LABS: INR 1.09 (0.9-1.15); Partial Thromboplastin Time 26.8 sec (23.78-33.04); Prothrombin Time 11.6 sec (9.27-12.13)
[2018-10-22 06:56] LABS: Albumin 2.8 g/dL (3.4-5.0); Calcium 7.9 mg/dL (8.5-10.1); Potassium 3.3 mmol/L (3.5-5.1)
[2018-10-22 06:59] LABS: Bilirubin, Total 2.2 mg/dL (0.2-1.0); Total Protein 5.6 g/dL (6.4-8.2)
[2018-10-22] MEDS: ONDANSETRON HCL 4 MG/2 ML VIAL IV PRN ×2 (07:52→17:26)
[2018-10-22] MEDS: PANTOPRAZOLE 40 MG TAB PO SCH ×4 (07:55→21:57)
[2018-10-22 09:00] VITALS: BP 111/50
[2018-10-22] MEDS ORDERED: HYDROcodone-ACET 5/325MG TAB PO PRN (09:00)
[2018-10-22] MEDS: LISINOPRIL 10 MG TAB PO SCH (09:19)
[2018-10-22] MEDS: LEVOFLOXACIN 500 MG TAB PO SCH (09:20)
[2018-10-22] MEDS: amLODIPine BESYLATE 5 MG TAB PO SCH (09:20)
[2018-10-22] MEDS: ENOXAPARIN SOD 40 MG/0.4 ML SYRINGE SC SCH (10:02)
[2018-10-22] MEDS: LORazepam 0.5 MG TAB PO PRN (11:03)
[2018-10-22 13:00] VITALS: BP 109/52
[2018-10-22] MEDS ORDERED: ALUM & MAG HYDROX-SIMETH LIQ(MAALOX) 30 ML PO PRN (13:00)
[2018-10-22] MEDS: metroNIDAZOLE 500 MG TAB PO SCH ×3 (13:29→21:57)
[2018-10-22] MEDS ORDERED: POTASSIUM CHLORIDE 20 MEQ, LIDOCAINE 1% (LOCAL ANESTH.) 2 ML in SODIUM CHL 0.9% 100 ML IV ONE (15:30)
[2018-10-22] MEDS ORDERED: LORazepam 0.5 MG TAB PO PRN (15:30)
[2018-10-22] MEDS: SUCRALFATE 1 GM/10 ML ORAL SUSP PO SCH (16:37)
[2018-10-22] MEDS: MORPHINE SULFATE 10 MG/ML INJ 1ML SDV IV PRN ×2 (16:38→21:24)
[2018-10-22 16:48] VITALS: BP 141/79
[2018-10-22] MEDS ORDERED: WARFARIN SODIUM 5 MG TAB PO ONE (17:00)
[2018-10-22 22:00] VITALS: BP 142/78
[2018-10-23] MEDS: MORPHINE SULFATE 10 MG/ML INJ 1ML SDV IV PRN ×2 (01:41→05:41)
[2018-10-23 04:40] VITALS: BP 113/68
[2018-10-23 05:33] LABS: INR 1.13 (0.9-1.15); Partial Thromboplastin Time 27.2 sec (23.78-33.04)
[2018-10-23] MEDS: GABAPENTIN 400 MG CAP PO SCH ×2 (05:35→14:00)
[2018-10-23] MEDS: SUCRALFATE 1 GM/10 ML ORAL SUSP PO SCH ×4 (05:35→16:37)
[2018-10-23] MEDS: metroNIDAZOLE 500 MG TAB PO SCH ×2 (05:35→14:00)
[2018-10-23 09:00] VITALS: BP 145/88
[2018-10-23] MEDS: LEVOFLOXACIN 500 MG TAB PO SCH (09:51)
[2018-10-23] MEDS: LISINOPRIL 10 MG TAB PO SCH (09:52)
[2018-10-23] MEDS: ENOXAPARIN SOD 40 MG/0.4 ML SYRINGE SC SCH (09:52)
[2018-10-23] MEDS: amLODIPine BESYLATE 5 MG TAB PO SCH (09:52)
[2018-10-23] MEDS: PANTOPRAZOLE 40 MG TAB PO SCH (09:52)
[2018-10-23] MEDS ORDERED: PANT40T PO (10:04)
[2018-10-23] MEDS ORDERED: GABA400C11 PO (10:04)
[2018-10-23] MEDS ORDERED: WARFARIN SODIUM 5 MG TAB PO ONE (17:00)
== END 2018-10-23 19:10 | disposition home health service (06) | DRG 418 ==
LOC: ER 22:28 → EDBD 22:28 → OVERFLOW 22:29 → WEST WING 10-10 08:28
PROVIDERS: ADMIT Nurse Practitioner Family; ATTEND Internal Medicine
PROC: 30233L1 Transfusion of Nonautologous Fresh Plasma into Peripheral Vein, Percutaneous Approach (ICD-10-PCS; 2018-10-13)
PROC: 30233K1 Transfusion of Nonautologous Frozen Plasma into Peripheral Vein, Percutaneous Approach (ICD-10-PCS; 2018-10-13)
PROC: BF131ZZ Fluoroscopy of Gallbladder and Bile Ducts using Low Osmolar Contrast (ICD-10-PCS; 2018-10-16)
PROC: 0F798DZ Dilation of Common Bile Duct with Intraluminal Device, Via Natural or Artificial Opening Endoscopic (ICD-10-PCS; principal; 2018-10-16 12:25)
PROC: 0FT44ZZ Resection of Gallbladder, Percutaneous Endoscopic Approach (ICD-10-PCS; 2018-10-19)
DX: K80.67 Calculus of gallbladder and bile duct with acute and chronic cholecystitis with obstruction (principal); D68.69 Other thrombophilia; I48.1 Persistent atrial fibrillation; D64.9 Anemia, unspecified; I48.91 Unspecified atrial fibrillation; K21.9 Gastro-esophageal reflux disease without esophagitis; N18.9 Chronic kidney disease, unspecified; T45.515A Adverse effect of anticoagulants, initial encounter; G62.9 Polyneuropathy, unspecified; I13.10 Hypertensive heart and chronic kidney disease without heart failure, with stage 1 through stage 4 chronic kidney disease, or unspecified chronic kidney disease; I48.2 Chronic atrial fibrillation; E78.5 Hyperlipidemia, unspecified; E87.6 Hypokalemia; G89.29 Other chronic pain; H91.90 Unspecified hearing loss, unspecified ear; Z79.01 Long term (current) use of anticoagulants; Z79.899 Other long term (current) drug therapy; Z95.0 Presence of cardiac pacemaker; Y92.89 Other specified places as the place of occurrence of the external cause
CPT/HCPCS: 36415; 71045; 71250; 74018; 74177; 76000; 80053; 80307; 81001; 82150; 82247; 83690; 83735; 83880; 84132; 84484; 85025; 85610; 85730; 86850; 86900; 86901; 87040; 93005; 93306; 96365; 96366; 96367; 97116; 97163; 97530; A6257; C9113; G0378; J0330; J0696; J1100; J1885; J1956; J2001; J2250; J2405; J2704; J3430; J3480; J3490; Q9967

== ENCOUNTER 2019-01-26 05:36 | Emergency (ER) | payer OTHER ==
[~2019-01-26] VITALS: Ht 180.3 cm; Wt 72.6 kg
[~2019-01-26 05:36] MED LIST changes: -GABA300C10 PO; +GABA400C11 PO; +PANT40T PO
[2019-01-26 07:36] LABS: Alanine Aminotransferase 16 U/L (16-61); Anion Gap 6 (5-15); Aspartate Aminotransferase 17 U/L (15-37); BUN/Creatinine Ratio 19.4; Blood Urea Nitrogen 19 mg/dL (7-18); Calcium 8.6 mg/dL (8.5-10.1); Carbon Dioxide 29 mmol/L (21-32); Chloride 105 mmol/L (98-107); GFR African American 93 mL/min; GFR Non-African American 77 mL/min; Glucose 91 mg/dL (74-106); INR 1.03 (0.9-1.15); Partial Thromboplastin Time 27.7 sec (23.78-33.04); Potassium 3.5 mmol/L (3.5-5.1); Sodium 140 mmol/L (136-145)
[2019-01-26 07:41] LABS: Alkaline Phosphatase 68 U/L (45-117); Bilirubin, Total 0.7 mg/dL (0.2-1.0); Total Protein 7.3 g/dL (6.4-8.2)
[2019-01-26 07:49] LABS: Basophils # (auto) 0 uL; Basophils % (auto) 0.4 % (0.0-2.0); Eosinophils # (auto) 0.1 uL; Eosinophils % (auto) 1.1 % (0.0-7.0); Hemoglobin 14.7 g/dL (13.5-17.5); Lymphocytes % (auto) 18.3 % (10.0-50.0); Mean Corpuscular Hemoglobin 29.4 pg (28.0-32.0); Mean Corpuscular Hgb Conc. 34.1 g/dL (32.0-36.0); Mean Corpuscular Volume 86.2 fL (80.0-100.0); Monocytes # (auto) 0.6 uL; Neutrophils # (auto) 3.7 uL; Neutrophils % (auto) 69.2 % (37.0-80.0); Nucleated Red Blood Cells % 0.1 %; Platelet Count (auto) 215 10^3/uL (140-450); Red Blood Cells 4.99 10^6/uL (4.5-5.90); Red Cell Distribution Width 13.4 % (11.8-14.3); White Blood Cell 5.4 10^3/uL (4.4-10.8)
[2019-01-26] MEDS ORDERED: GABAPENTIN 300 MG CAP PO ONE (08:45)
[2019-01-26 08:46] LABS: Urine Bacteria NONE SEEN /hpf (None Seen); Urine Blood Negative /uL (Negative); Urine Mucus FEW (None Seen); Urine Specific Gravity 1.021 (1.001-1.035); Urine WBC 3 /hpf (0 - 3)
[2019-01-26 09:41] VITALS: BP 168/92
== END 2019-01-26 09:42 | disposition home or self-care (01) ==
LOC: EDBD 05:36 → ER 05:36
DX: J18.9 Pneumonia, unspecified organism (principal); I12.9 Hypertensive chronic kidney disease with stage 1 through stage 4 chronic kidney disease, or unspecified chronic kidney disease; N18.9 Chronic kidney disease, unspecified; K21.9 Gastro-esophageal reflux disease without esophagitis; Z95.0 Presence of cardiac pacemaker
CPT/HCPCS: 36415; 71045; 80053; 81001; 83880; 84484; 85025; 85610; 85730; 93005; 94761

== ENCOUNTER 2019-01-31 05:29 | Emergency (ER) | payer OTHER ==
[~2019-01-31] VITALS: Ht 180.3 cm; Wt 70.3 kg
[2019-01-31] MEDS ORDERED: SODIUM CHLORIDE 0.9% 1,000 ML IV ONE (07:44)
[2019-01-31] MEDS ORDERED: KETOROLAC TROMETH 30 MG/ML 1ML VIAL IV ONE (07:45)
[2019-01-31] MEDS ORDERED: PROMETHAZINE HCL 25 MG/ML 1ML IV ONE (07:45)
[2019-01-31 08:00] VITALS: BP 127/93
[2019-01-31 08:31] LABS: Basophils # (auto) 0 uL; Basophils % (auto) 0.8 % (0.0-2.0); Eosinophils # (auto) 0.1 uL; Eosinophils % (auto) 2.4 % (0.0-7.0); Hematocrit 42.6 % (41.0-53.0); Hemoglobin 14.4 g/dL (13.5-17.5); Lymphocytes # (auto) 1.3 uL; Lymphocytes % (auto) 28.6 % (10.0-50.0); Mean Corpuscular Hemoglobin 29.3 pg (28.0-32.0); Mean Corpuscular Hgb Conc. 33.7 g/dL (32.0-36.0); Monocytes # (auto) 0.5 uL; Monocytes % (auto) 10.1 % (0.0-12.0); Neutrophils # (auto) 2.6 uL; Neutrophils % (auto) 58.1 % (37.0-80.0); Nucleated Red Blood Cells % 0.1 %; Platelet Count (auto) 214 10^3/uL (140-450); Red Cell Distribution Width 13.6 % (11.8-14.3); White Blood Cell 4.5 10^3/uL (4.4-10.8)
[2019-01-31 08:46] LABS: Urine Bacteria NONE SEEN /hpf (None Seen); Urine Blood Negative /uL (Negative); Urine Specific Gravity 1.005 (1.001-1.035); Urine WBC <1 /hpf (0 - 3)
[2019-01-31 08:57] LABS: Anion Gap 3 (5-15); Blood Urea Nitrogen 12 mg/dL (7-18); Calcium 8.9 mg/dL (8.5-10.1); Carbon Dioxide 30 mmol/L (21-32); Chloride 106 mmol/L (98-107); Glucose 88 mg/dL (74-106); Magnesium 2.4 mg/dL (1.6-2.6); Sodium 139 mmol/L (136-145)
[2019-01-31 09:03] LABS: Alanine Aminotransferase 16 U/L (16-61); Alkaline Phosphatase 78 U/L (45-117); Aspartate Aminotransferase 18 U/L (15-37); BUN/Creatinine Ratio 10.1; Bilirubin, Total 0.3 mg/dL (0.2-1.0); GFR African American 74 mL/min; GFR Non-African American 61 mL/min; Total Protein 7.3 g/dL (6.4-8.2)
[2019-01-31] MEDS ORDERED: IOHEXOL 350 MG/ML 100ML IJ ONE (10:33)
[2019-01-31] MEDS ORDERED: MORPHINE SULF INJ 2 MG/ML SYRINGE 1ML IV ONE (11:00)
== END 2019-01-31 13:19 | disposition home or self-care (01) ==
LOC: ER 05:29 → EDBD 05:29 → ER 13:19
DX: M48.54XA Collapsed vertebra, not elsewhere classified, thoracic region, initial encounter for fracture (principal); G89.29 Other chronic pain; M79.605 Pain in left leg; M79.604 Pain in right leg; G62.9 Polyneuropathy, unspecified; H91.93 Unspecified hearing loss, bilateral; I48.2 Chronic atrial fibrillation; I12.0 Hypertensive chronic kidney disease with stage 5 chronic kidney disease or end stage renal disease; N18.6 End stage renal disease; K21.9 Gastro-esophageal reflux disease without esophagitis; Z95.0 Presence of cardiac pacemaker
CPT/HCPCS: 36415; 71046; 71275; 80053; 81001; 83735; 83880; 84443; 84484; 85025; 85379; 93005; 93970; 94761; 96374; 96375; 99284; J1885; J2270; J2550; J7030; Q9967

== ENCOUNTER 2019-10-08 18:44 | Emergency (ER) | payer OTHER ==
[~2019-10-08] VITALS: Ht 180.3 cm; Wt 77.1 kg
[2019-10-08 20:51] LABS: Urine WBC None Seen /hpf (0 - 3)
[2019-10-08 20:59] LABS: Urine Bacteria NONE SEEN /hpf (None Seen); Urine Blood TRACE /uL (Negative); Urine Hyaline Cast FEW /lpf (0 - 2); Urine Specific Gravity 1.008 (1.001-1.035)
[2019-10-08 22:28] VITALS: BP 132/67
[2019-10-08] MEDS ORDERED: cefTRIAXone SOD 1,000 MG VL IM ONE (22:45)
[2019-10-08] MEDS ORDERED: NEOMYCIN-BACITRACIN-POLYM UNITDOSE PKG TOP OINT TOP ONE ×2 (23:00→23:07)
== END 2019-10-09 00:02 | disposition home or self-care (01) ==
LOC: EDBD 18:44 → ER 18:47
DX: S31.21XA Laceration without foreign body of penis, initial encounter (principal); R33.9 Retention of urine, unspecified; I12.9 Hypertensive chronic kidney disease with stage 1 through stage 4 chronic kidney disease, or unspecified chronic kidney disease; N18.9 Chronic kidney disease, unspecified; K21.9 Gastro-esophageal reflux disease without esophagitis; Z95.0 Presence of cardiac pacemaker; Z79.899 Other long term (current) drug therapy; X58.XXXA Exposure to other specified factors, initial encounter; Y93.89 Activity, other specified; Y92.89 Other specified places as the place of occurrence of the external cause; Y99.8 Other external cause status
CPT/HCPCS: 51702; 81001; 96372

== ENCOUNTER 2019-10-16 09:49 | Emergency (ER) | payer OTHER ==
[~2019-10-16] VITALS: Ht 175.3 cm; Wt 72.6 kg
[2019-10-16 10:35] LABS: Basophils # (auto) 0 uL; Basophils % (auto) 0.1 % (0.0-2.0); Eosinophils # (auto) 0 uL; Eosinophils % (auto) 0.1 % (0.0-7.0); Hematocrit 43.9 % (41.0-53.0); Lymphocytes # (auto) 0.7 uL; Lymphocytes % (auto) 8.1 % (10.0-50.0); Mean Corpuscular Hemoglobin 29.2 pg (28.0-32.0); Mean Corpuscular Volume 85.8 fL (80.0-100.0); Monocytes # (auto) 0.4 uL; Monocytes % (auto) 4.7 % (0.0-12.0); Neutrophils # (auto) 7.6 uL; Platelet Count (auto) 275 10^3/uL (140-450); Red Blood Cells 5.12 10^6/uL (4.5-5.90); Red Cell Distribution Width 13.2 % (11.8-14.3); White Blood Cell 8.8 10^3/uL (4.4-10.8)
[2019-10-16 10:48] LABS: INR 1.13 (0.9-1.15); Partial Thromboplastin Time 28.3 sec (23.64-32.05)
[2019-10-16 10:55] LABS: Albumin 4.2 g/dL (3.4-5.0); Anion Gap 6 (5-15); Blood Urea Nitrogen 14 mg/dL (7-18); Calcium 8.4 mg/dL (8.5-10.1); Carbon Dioxide 28 mmol/L (21-32); Chloride 104 mmol/L (98-107); Glucose 104 mg/dL (74-106); Potassium 3.2 mmol/L (3.5-5.1); Sodium 138 mmol/L (136-145)
[2019-10-16 11:00] LABS: Alanine Aminotransferase 21 U/L (16-61); Alkaline Phosphatase 135 U/L (45-117); Aspartate Aminotransferase 18 U/L (15-37); BUN/Creatinine Ratio 13.7; Bilirubin, Total 0.7 mg/dL (0.2-1.0); GFR African American 89 mL/min; GFR Non-African American 73 mL/min; Total Protein 7.6 g/dL (6.4-8.2)
[2019-10-16] MEDS ORDERED: POTASSIUM EFFERVESENT TAB 25 MEQ PO ONE (11:15)
[2019-10-16 11:34] VITALS: BP 123/89
[2019-10-16 12:36] LABS: Urine Bacteria NONE SEEN /hpf (None Seen); Urine Blood TRACE /uL (Negative); Urine Specific Gravity 1.004 (1.001-1.035); Urine WBC 1 /hpf (0 - 3)
== END 2019-10-16 16:38 | disposition home or self-care (01) ==
LOC: ER 09:49 → EDBD 09:49 → ER 16:38
DX: E87.6 Hypokalemia (principal); F41.9 Anxiety disorder, unspecified; I12.9 Hypertensive chronic kidney disease with stage 1 through stage 4 chronic kidney disease, or unspecified chronic kidney disease; N18.9 Chronic kidney disease, unspecified; R60.0 Localized edema; K21.9 Gastro-esophageal reflux disease without esophagitis; Z95.0 Presence of cardiac pacemaker; Z87.440 Personal history of urinary (tract) infections
CPT/HCPCS: 36415; 80053; 81001; 83880; 84484; 85025; 85610; 85730; 93005; 93970

== ENCOUNTER 2019-10-21 06:55 | Emergency (ER) | payer OTHER ==
[~2019-10-21] VITALS: Ht 175.3 cm; Wt 63.5 kg
[2019-10-21] MEDS ORDERED: MORPHINE SULFATE 4 MG/ML SYR/VIAL IV ONE (08:45)
[2019-10-21] MEDS ORDERED: ONDANSETRON HCL 4 MG/2 ML VIAL IV ONE (08:45)
[2019-10-21 09:13] LABS: Basophils # (auto) 0 uL; Basophils % (auto) 0.3 % (0.0-2.0); Eosinophils # (auto) 0.1 uL; Eosinophils % (auto) 0.8 % (0.0-7.0); Hematocrit 42.9 % (41.0-53.0); Hemoglobin 14.9 g/dL (13.5-17.5); Lymphocytes # (auto) 1.2 uL; Lymphocytes % (auto) 9.5 % (10.0-50.0); Mean Corpuscular Hemoglobin 29.6 pg (28.0-32.0); Mean Corpuscular Hgb Conc. 34.6 g/dL (32.0-36.0); Mean Corpuscular Volume 85.5 fL (80.0-100.0); Monocytes # (auto) 1.4 uL; Monocytes % (auto) 11.3 % (0.0-12.0); Neutrophils # (auto) 9.6 uL; Neutrophils % (auto) 78.1 % (37.0-80.0); Platelet Count (auto) 230 10^3/uL (140-450); Potassium 3.2 mmol/L (3.5-5.1); Red Blood Cells 5.02 10^6/uL (4.5-5.90); Red Cell Distribution Width 13.5 % (11.8-14.3); White Blood Cell 12.3 10^3/uL (4.4-10.8)
[2019-10-21 09:20] LABS: Albumin 4.2 g/dL (3.4-5.0); BUN/Creatinine Ratio 11.6; Bilirubin, Total 1.7 mg/dL (0.2-1.0); Calcium 8.3 mg/dL (8.5-10.1)
[2019-10-21 10:33] LABS: Urine Bacteria FEW /hpf (None Seen); Urine Blood Negative /uL (Negative); Urine Specific Gravity 1.004 (1.001-1.035); Urine WBC 1 /hpf (0 - 3)
[2019-10-21] MEDS ORDERED: POTASSIUM CHL 20 Meq TABLET PO ONE (16:45)
[2019-10-21 19:02] VITALS: BP 135/75
--- NOTE | 2019-10-22 13:34 | NUR ---
medical communication specialist 10/21/19 While medical communication specialist i received a page from Mariana in ER stating patient has a ss consult for med management. I call [facility] case management and spoke to Renetta churchill RN in the EPR[facility] department and she informed me patient is already set up for med management and wound care and patient is good to go home. Mariana has been notified in ER. Addendum: 10/24/19 at 1738 by Sophie LEE Amended: Links added.
== END 2019-10-21 19:11 | disposition short-term general hospital (02) ==
LOC: ER 06:55 → EDBD 06:55 → ER 19:11
DX: N13.8 Other obstructive and reflux uropathy (principal); T83.098A Other mechanical complication of other urinary catheter, initial encounter; E87.1 Hypo-osmolality and hyponatremia; E87.6 Hypokalemia; I12.9 Hypertensive chronic kidney disease with stage 1 through stage 4 chronic kidney disease, or unspecified chronic kidney disease; N18.9 Chronic kidney disease, unspecified; I48.91 Unspecified atrial fibrillation; K21.9 Gastro-esophageal reflux disease without esophagitis; Z79.01 Long term (current) use of anticoagulants; Z79.899 Other long term (current) drug therapy
CPT/HCPCS: 36415; 80053; 81001; 85025; 96374; 96375; 99291; J2270; J2405

== ENCOUNTER 2019-11-05 15:57 | Emergency (ER) | payer OTHER ==
[~2019-11-05] VITALS: Ht 180.3 cm; Wt 78.0 kg
[2019-11-05] MEDS ORDERED: FUROSEMIDE 40 MG/4 ML VIAL IV ONE (16:30)
[2019-11-05 16:53] LABS: Basophils # (auto) 0 uL; Basophils % (auto) 0.5 % (0.0-2.0); Eosinophils # (auto) 0.1 uL; Eosinophils % (auto) 1.2 % (0.0-7.0); Hematocrit 38.8 % (41.0-53.0); Hemoglobin 13.1 g/dL (13.5-17.5); Lymphocytes # (auto) 1.1 uL; Lymphocytes % (auto) 20.5 % (10.0-50.0); Mean Corpuscular Hemoglobin 29.1 pg (28.0-32.0); Mean Corpuscular Hgb Conc. 33.6 g/dL (32.0-36.0); Mean Corpuscular Volume 86.4 fL (80.0-100.0); Monocytes # (auto) 0.5 uL; Monocytes % (auto) 9.2 % (0.0-12.0); Neutrophils # (auto) 3.7 uL; Neutrophils % (auto) 68.6 % (37.0-80.0); Nucleated Red Blood Cells % 0.1 %; Platelet Count (auto) 181 10^3/uL (140-450); Red Blood Cells 4.49 10^6/uL (4.5-5.90); Red Cell Distribution Width 13.7 % (11.8-14.3); White Blood Cell 5.4 10^3/uL (4.4-10.8)
[2019-11-05 17:02] LABS: Urine Bacteria FEW /hpf (None Seen); Urine Blood 1+ /uL (Negative); Urine Specific Gravity 1.003 (1.001-1.035); Urine WBC 7 /hpf (0 - 3)
[2019-11-05 17:05] LABS: Albumin 3.4 g/dL (3.4-5.0); Anion Gap 7 (5-15); BUN/Creatinine Ratio 8.7; Blood Urea Nitrogen 8 mg/dL (7-18); Calcium 8.3 mg/dL (8.5-10.1); Carbon Dioxide 28 mmol/L (21-32); Chloride 97 mmol/L (98-107); GFR African American 100 mL/min; GFR Non-African American 83 mL/min; Glucose 94 mg/dL (74-106); Magnesium 1.9 mg/dL (1.6-2.6); Potassium 4.4 mmol/L (3.5-5.1); Sodium 132 mmol/L (136-145)
[2019-11-05 17:10] LABS: Alanine Aminotransferase 17 U/L (16-61); Alkaline Phosphatase 112 U/L (45-117); Aspartate Aminotransferase 23 U/L (15-37); Bilirubin, Total 0.4 mg/dL (0.2-1.0); Total Protein 6.5 g/dL (6.4-8.2)
[2019-11-05] MEDS ORDERED: CLINDAMYCIN 600MG IV 50 ML IV ONE (19:15)
[2019-11-05 20:30] VITALS: BP 123/70
== END 2019-11-05 21:41 | disposition short-term general hospital (02) ==
LOC: EDBD 15:57 → ER 15:57 → EDUNIT# 15:57 → ER 21:41
DX: L03.116 Cellulitis of left lower limb (principal); L03.115 Cellulitis of right lower limb; I12.9 Hypertensive chronic kidney disease with stage 1 through stage 4 chronic kidney disease, or unspecified chronic kidney disease; N18.9 Chronic kidney disease, unspecified; K21.9 Gastro-esophageal reflux disease without esophagitis; Z95.0 Presence of cardiac pacemaker; Z87.440 Personal history of urinary (tract) infections; Z79.899 Other long term (current) drug therapy
CPT/HCPCS: 36415; 71045; 80053; 81001; 83735; 83880; 84484; 85025; 93005; 96374; 96375; 99285; J1940; J3490

== ENCOUNTER 2019-11-16 04:17 | Emergency (ER) | payer OTHER ==
[~2019-11-16] VITALS: Ht 177.8 cm; Wt 77.1 kg
[2019-11-16 07:25] VITALS: BP 145/87
== END 2019-11-16 08:41 | disposition home or self-care (01) ==
LOC: ER 04:17 → EDBD 04:17 → ER 08:41
DX: T83.9XXA Unspecified complication of genitourinary prosthetic device, implant and graft, initial encounter (principal); Y92.89 Other specified places as the place of occurrence of the external cause; I11.0 Hypertensive heart disease with heart failure; I50.9 Heart failure, unspecified; M19.90 Unspecified osteoarthritis, unspecified site; Z90.89 Acquired absence of other organs; Z95.0 Presence of cardiac pacemaker
CPT/HCPCS: 93970

== ENCOUNTER 2019-11-25 03:44 | Emergency (ER) | payer OTHER ==
[~2019-11-25] VITALS: Ht 177.8 cm; Wt 83.9 kg
[2019-11-25] MEDS ORDERED: SODIUM CHLORIDE 0.9% 1,000 ML IV ONE ×2 (06:23→07:06)
[2019-11-25] MEDS ORDERED: SODIUM CHLORIDE 0.9% 500 ML IV ONE (06:23)
[2019-11-25 06:53] LABS: Basophils # (auto) 0 uL; Basophils % (auto) 0.5 % (0.0-2.0); Eosinophils # (auto) 0.1 uL; Hematocrit 42.7 % (41.0-53.0); Hemoglobin 14.5 g/dL (13.5-17.5); Lymphocytes # (auto) 1.2 uL; Lymphocytes % (auto) 13.6 % (10.0-50.0); Mean Corpuscular Hemoglobin 29.2 pg (28.0-32.0); Mean Corpuscular Volume 85.8 fL (80.0-100.0); Monocytes # (auto) 0.6 uL; Monocytes % (auto) 7.2 % (0.0-12.0); Neutrophils # (auto) 6.8 uL; Neutrophils % (auto) 77.7 % (37.0-80.0); Platelet Count (auto) 259 10^3/uL (140-450); Red Blood Cells 4.98 10^6/uL (4.5-5.90); Red Cell Distribution Width 13.5 % (11.8-14.3); White Blood Cell 8.8 10^3/uL (4.4-10.8)
[2019-11-25 07:13] LABS: Albumin 3.6 g/dL (3.4-5.0); BUN/Creatinine Ratio 12.2; Calcium 9.5 mg/dL (8.5-10.1); Magnesium 2.4 mg/dL (1.6-2.6); Potassium 4.3 mmol/L (3.5-5.1)
[2019-11-25 07:15] LABS: Urine Bacteria MANY /hpf (None Seen); Urine Blood 1+ /uL (Negative); Urine Specific Gravity 1.005 (1.001-1.035); Urine WBC 8 /hpf (0 - 3)
[2019-11-25] MEDS ORDERED: HYDROcodone-ACET 5/325MG TAB PO ONE (07:15)
[2019-11-25] MEDS ORDERED: GABAPENTIN 300 MG CAP PO ONE (07:15)
[2019-11-25 07:16] LABS: Bilirubin, Total 0.4 mg/dL (0.2-1.0); Total Protein 7.3 g/dL (6.4-8.2)
[2019-11-25 07:19] LABS: INR 1.15 (0.9-1.15); Partial Thromboplastin Time 29.3 sec (23.64-32.05)
[2019-11-25] MEDS ORDERED: IOHEXOL 350 MG/ML 100ML IJ ONE (10:18)
[2019-11-25] MEDS ORDERED: cefTRIAXone 1GM/50ML D5W 50 ML IV ONE (13:15)
[2019-11-25 19:18] VITALS: BP 165/80
== END 2019-11-25 20:19 | disposition home or self-care (01) ==
LOC: EDBD 03:44 → ER 03:46
DX: F11.23 Opioid dependence with withdrawal (principal); N39.0 Urinary tract infection, site not specified; I48.20 Chronic atrial fibrillation, unspecified; G89.4 Chronic pain syndrome; I10 Essential (primary) hypertension; I12.9 Hypertensive chronic kidney disease with stage 1 through stage 4 chronic kidney disease, or unspecified chronic kidney disease; N18.9 Chronic kidney disease, unspecified; K21.9 Gastro-esophageal reflux disease without esophagitis; Z95.0 Presence of cardiac pacemaker
CPT/HCPCS: 36415; 71046; 71275; 80053; 81001; 83735; 84443; 85025; 85379; 85610; 85730; 93005; 93970; 96365; 99284; J0696; J7030; J7040; Q9967

== ENCOUNTER 2019-11-27 02:21 | Emergency (ER) | payer OTHER ==
[~2019-11-27] VITALS: Ht 177.8 cm; Wt 2.6 kg
[2019-11-27 04:48] LABS: Urine Bacteria MANY /hpf (None Seen); Urine Blood 2+ /uL (Negative); Urine Specific Gravity 1.005 (1.001-1.035); Urine WBC 207 /hpf (0 - 3); Urine WBC Clumps PRESENT /hpf (None Seen)
[2019-11-27 06:00] VITALS: BP 155/80
[2019-11-27] MEDS ORDERED: cefTRIAXone 1GM/50ML D5W 50 ML IV ONE (06:45)
[2019-11-27] MEDS ORDERED: cefTRIAXone SOD 1,000 MG VL ONE (06:50)
[2019-11-27] MEDS ORDERED: LIDOCAINE 1% HCL (LOCAL ANESTH.) INJ 20ML MDV ONE (06:51)
[2019-11-27] MEDS ORDERED: LIDOCAINE 2% (LOCAL ANESTH.) PF 5ml SDV IJ ONE (07:00)
[2019-11-27] MEDS ORDERED: cefTRIAXone SOD 1,000 MG VL IM ONE (07:00)
== END 2019-11-27 10:40 | disposition home or self-care (01) ==
LOC: EDBD 02:21 → ER 02:29
DX: N39.0 Urinary tract infection, site not specified (principal); F41.9 Anxiety disorder, unspecified; G89.29 Other chronic pain; M54.9 Dorsalgia, unspecified; M79.2 Neuralgia and neuritis, unspecified; I48.91 Unspecified atrial fibrillation; K21.9 Gastro-esophageal reflux disease without esophagitis; I12.9 Hypertensive chronic kidney disease with stage 1 through stage 4 chronic kidney disease, or unspecified chronic kidney disease; N18.9 Chronic kidney disease, unspecified; Z95.0 Presence of cardiac pacemaker; Z90.89 Acquired absence of other organs; Z79.01 Long term (current) use of anticoagulants; Z79.899 Other long term (current) drug therapy
CPT/HCPCS: 81001; 96372; 99283; J0696; J2001

== ENCOUNTER 2019-12-03 16:49 | Emergency (ER) | payer OTHER ==
[~2019-12-03] VITALS: Ht 165.1 cm; Wt 79.4 kg
[2019-12-03 17:43] VITALS: BP 138/82
== END 2019-12-03 17:50 | disposition home or self-care (01) ==
LOC: ER 16:49
DX: G89.29 Other chronic pain (principal); M54.9 Dorsalgia, unspecified; K21.9 Gastro-esophageal reflux disease without esophagitis; I12.9 Hypertensive chronic kidney disease with stage 1 through stage 4 chronic kidney disease, or unspecified chronic kidney disease; N18.9 Chronic kidney disease, unspecified; Z76.0 Encounter for issue of repeat prescription; Z95.0 Presence of cardiac pacemaker; Z79.899 Other long term (current) drug therapy

== ENCOUNTER 2020-07-16 17:13 | Inpatient (IN) | payer OTHER ==
[~2020-07-16] VITALS: Ht 180.3 cm; Wt 78.4 kg
[2020-07-16 20:58] LABS: Basophils # (auto) 0 10 ^3/uL (0-0.2); Basophils % (auto) 0.3 % (0.0-2.0); Eosinophils # (auto) 0 10 ^3/uL (0-0.8); Hematocrit 45.6 % (41.0-53.0); Hemoglobin 15.1 g/dL (13.5-17.5); Lymphocytes # (auto) 0.5 10 ^3/uL (0.4-5.4); Lymphocytes % (auto) 2.9 % (10.0-50.0); Mean Corpuscular Hemoglobin 28.1 pg (28.0-32.0); Mean Corpuscular Volume 85.1 fL (80.0-100.0); Monocytes # (auto) 0.9 10 ^3/uL (0-1.3); Monocytes % (auto) 5.4 % (0.0-12.0); Neutrophils # (auto) 14.6 10 ^3/uL (1.6-8.6); Neutrophils % (auto) 91.4 % (37.0-80.0); Platelet Count (auto) 178 10^3/uL (140-450); Red Blood Cells 5.36 10^6/uL (4.5-5.90); Red Cell Distribution Width 14.2 % (11.8-14.3)
[2020-07-16 21:14] LABS: Urine Bacteria NONE SEEN /hpf (None Seen); Urine Blood 3+ /uL (Negative); Urine Mucus FEW (None Seen); Urine Specific Gravity 1.025 (1.001-1.035); Urine WBC 10 /hpf (0 - 3)
[2020-07-16 21:16] LABS: Albumin 3.5 g/dL (3.4-5.0); BUN/Creatinine Ratio 22.7; Calcium 8.6 mg/dL (8.5-10.1)
[2020-07-16 21:19] LABS: INR 1.25 (0.9-1.15); Lactic Acid w/Reflex 2.5 mmol/L (0.4-2.0); Partial Thromboplastin Time 25.8 sec (23.0-31.2)
[2020-07-16 21:21] LABS: Bilirubin, Total 8.1 mg/dL (0.2-1.0); Total Protein 7.1 g/dL (6.4-8.2)
[2020-07-16 21:23] LABS: Potassium 2.8 mmol/L (3.5-5.1)
[2020-07-16] MEDS ORDERED: SODIUM CHLORIDE 0.9% 1,000 ML IV ONE (22:00)
[2020-07-16] MEDS: POTASSIUM CHL 20MEQ/100ML 100 ML IV SCH (22:23)
[2020-07-17] MEDS ORDERED: ACETAMINOPHEN 650 MG RECT SUPP PR ONE (00:15)
[2020-07-17] MEDS: POTASSIUM CHL 20MEQ/100ML 100 ML IV SCH (00:43)
[2020-07-17] MEDS ORDERED: cefTRIAXone 1GM/50ML D5W 50 ML IV ONE (01:15)
[2020-07-17] MEDS ORDERED: SODIUM CHLORIDE 0.9% 1,000 ML IV SCH (02:32)
[2020-07-17] MEDS ORDERED: NITROGLYCERIN 0.4 MG SL TAB SL PRN (02:45)
[2020-07-17] MEDS ORDERED: ONDANSETRON HCL 4 MG/2 ML VIAL IV PRN (02:45)
[2020-07-17] MEDS ORDERED: TEMAZEPAM 15 MG CAP PO PRN (02:45)
[2020-07-17] MEDS ORDERED: IOHEXOL 350 MG/ML 100ML IJ ONE (02:47)
[2020-07-17] MEDS ORDERED: levoFLOXacin 500MG 100 ML IV SCH (03:00)
[2020-07-17] MEDS: MORPHINE SULF INJ 2 MG/ML SYRINGE 1ML IV PRN ×2 (03:52→22:25)
[2020-07-17] MEDS ORDERED: MORPHINE SULF INJ 2 MG/ML SYRINGE 1ML IV ONE (05:00)
[2020-07-17] MEDS: LISINOPRIL 10 MG TAB PO SCH (06:35)
[2020-07-17 08:57] LABS: BUN/Creatinine Ratio 34.8
[2020-07-17 09:00] VITALS: BP 159/88
--- NOTE | 2020-07-17 09:00 | NUR ---
Telemetry admit from ER HANS CHAUHAN admitted to Telemetry unit after SBAR received. Patient oriented to JAY CHRIS, RN primary RN, unit, room, bed, and unit policies regarding patient care and visiting hours. Patient now on continuous telemetry monitoring, tele box # 1 and telemetry reading on arrival to unit is A-FIB. Patient placed on bedside oxygen, weighed by bedscale and safety belt installer at bedside for patient safety. All questions and concerns addressed, patient verbalized understanding.
--- NOTE | 2020-07-17 09:02 | NUR ---
Critical Received critical lab value of a K 2.4 and Calcium 5.3. Paged Hospitalist poison information specialist, MD Beltrán. awaiting call back at this time.
[2020-07-17 09:09] LABS: Calcium 5.3 mg/dL (8.5-10.1); Potassium 2.4 mmol/L (3.5-5.1)
[2020-07-17] MEDS: FAMOTIDINE 20 MG TAB PO SCH ×2 (09:17→22:24)
[2020-07-17] MEDS: ASPirin 81 mg TAB PO SCH (09:17)
--- NOTE | 2020-07-17 09:45 | NUR ---
MD Beltrán paged again for critical. No response at this time.
[2020-07-17] MEDS ORDERED: amLODIPine BESYLATE 5 MG TAB PO SCH (10:00)
[2020-07-17] MEDS ORDERED: POTASSIUM CHL 20 Meq TABLET PO ONE (10:30)
--- NOTE | 2020-07-17 10:45 | NUR ---
Cardiology HOOP PUNCH AND COILER OPERATOR Óscar at bedside, aware of patient status including low potassium and calcium. New orders for potassium replacement received. New medication added for patient BP and HR. Will carry out new orders and cont to monitor patient.
[2020-07-17 10:49] LABS: INR 1.3 (0.9-1.15)
[2020-07-17] MEDS ORDERED: METOPROLOL TARTRATE 25 MG TAB PO ONE (11:15)
[2020-07-17] MEDS ORDERED: POTASSIUM EFFERVESENT TAB 25 MEQ GT ONE (11:15)
[2020-07-17] MEDS ORDERED: MAGNESIUM SULFATE 1GM/100ML 100 ML IV ONE (11:15)
--- NOTE | 2020-07-17 11:20 | NUR ---
ADMISSION ATTEMPTED PATIENT ALERT ONLY TO SELF, UNABLE TO OBTAIN ACCURATE INFORMATION DUE TO PATIENT ALOC AND NO FAMILY CONTACT INFORMATION AVAILABLE Addendum: 07/17/20 at 1124 by JILLIAN GREEN RN RN ADMISSION COMPLETED TO THE BEST OF RN ABILITY. WILL ATTEMPT TO GAIN MORE INFORMATION AT LATER TIME WHEN PT IS NO LONGER CONFUSED, OR FAMILY CONTACT INFO IS OBTAINED.
[2020-07-17] MEDS ORDERED: POTASSIUM EFFERVESENT TAB 25 MEQ PO ONE (12:15)
[2020-07-17 13:00] VITALS: BP 141/91
[2020-07-17] MEDS ORDERED: CALCIUM GLUC 4.65meq/50ml D5AE 50 ML IV ONE (13:15)
[2020-07-17] MEDS ORDERED: PIPERACILLIN-TAZOB 3.375GM 100 ML IV ONE (13:15)
--- NOTE | 2020-07-17 14:56 | NUR ---
Blood Culture Patient positive for gram negative rods in the blood. MD Escobar aware, per MD Escobar, patient is covered with Zosyn. Will cont to monitor patient.
[2020-07-17] MEDS: D5W/SOD CHL 0.45%/KCL 20MEQ 1,000 ML IV SCH (16:32)
[2020-07-17 17:00] VITALS: BP 148/86
--- NOTE | 2020-07-17 19:25 | NUR ---
Opening Shift Note Assumed care of patient. Patient is wake and alert. No S/S of distress noted. Respirations are regular and non-labored. Pt is on 2 LPM NC with SpO2 95%. Patient shows sings of pain: moaning and grimacing. This issue will addressed per 's order. Jeff is patent. bed in lowest locked position, bed rails x 4 up, call light is within reach. for safety measures sitter at bed side. patient was instructed on POC and to call for assistance as needed. Will continue to monitor for changes Q1hr and PRN.
[2020-07-17] MEDS: ACETAMINOPHEN 325 MG TAB PO PRN (19:48)
[2020-07-17 20:00] VITALS: BP 137/83
[2020-07-17 22:00] VITALS: BP 137/83
[2020-07-17] MEDS ORDERED: POTASSIUM CHL 20 Meq TABLET PO SCH (22:00)
[2020-07-17] MEDS ORDERED: ATORVASTATIN 20 MG TAB PO SCH (22:00)
--- NOTE | 2020-07-17 22:00 | NUR ---
Pain Paged hospitalist regarding pt's pain in R. knee and abdomen. New order received, read back, and confirmed.
[2020-07-17] MEDS: PIPERACILLIN-TAZOB 3.375GM 100 ML IV SCH (22:22)
[2020-07-17] MEDS: METOPROLOL TARTRATE 25 MG TAB PO SCH (22:24)
[2020-07-18] MEDS: D5W/SOD CHL 0.45%/KCL 20MEQ 1,000 ML IV SCH ×2 (02:58→15:55)
[2020-07-18] MEDS: MORPHINE SULF INJ 2 MG/ML SYRINGE 1ML IV PRN ×2 (03:00→14:03)
[2020-07-18 05:00] VITALS: BP 142/79
[2020-07-18 06:01] LABS: Basophils # (auto) 0 10 ^3/uL (0-0.2); Basophils % (auto) 0.2 % (0.0-2.0); Eosinophils # (auto) 0 10 ^3/uL (0-0.8); Hematocrit 43.5 % (41.0-53.0); Hemoglobin 14.9 g/dL (13.5-17.5); Lymphocytes # (auto) 0.4 10 ^3/uL (0.4-5.4); Lymphocytes % (auto) 3.6 % (10.0-50.0); Mean Corpuscular Hemoglobin 28.9 pg (28.0-32.0); Mean Corpuscular Hgb Conc. 34.2 g/dL (32.0-36.0); Mean Corpuscular Volume 84.5 fL (80.0-100.0); Monocytes # (auto) 0.5 10 ^3/uL (0-1.3); Neutrophils % (auto) 91.2 % (37.0-80.0); Platelet Count (auto) 188 10^3/uL (140-450); Red Blood Cells 5.15 10^6/uL (4.5-5.90); Red Cell Distribution Width 14.8 % (11.8-14.3)
--- NOTE | 2020-07-18 06:15 | NUR ---
IV insertion IV access obtained via sterile technique by inserting 20 gauge catheter at R. forearm. IV secured properly. No trauma to site. Patient tolerated procedure well.
[2020-07-18] MEDS: PIPERACILLIN-TAZOB 3.375GM 100 ML IV SCH ×3 (06:16→21:45)
[2020-07-18 06:17] LABS: INR 1.21 (0.9-1.15); Partial Thromboplastin Time 28.8 sec (23.0-31.2)
[2020-07-18 06:19] LABS: Albumin 2.8 g/dL (3.4-5.0); Calcium 8.3 mg/dL (8.5-10.1)
[2020-07-18 06:22] LABS: BUN/Creatinine Ratio 23.9; Bilirubin, Total 11.7 mg/dL (0.2-1.0); Total Protein 6.3 g/dL (6.4-8.2)
[2020-07-18 09:00] VITALS: BP 146/82
[2020-07-18] MEDS: FAMOTIDINE 20 MG TAB PO SCH ×2 (09:51→21:45)
[2020-07-18] MEDS: ASPirin 81 mg TAB PO SCH (09:52)
[2020-07-18] MEDS: LISINOPRIL 10 MG TAB PO SCH (09:52)
[2020-07-18] MEDS: METOPROLOL TARTRATE 25 MG TAB PO SCH ×2 (09:53→21:46)
[2020-07-18] MEDS ORDERED: METOPROLOL TARTRATE 25 MG TAB PO ONE (12:30)
[2020-07-18 12:46] VITALS: BP 138/79
--- NOTE | 2020-07-18 14:13 | NUR ---
Patient transferred to room 280b report given to An HERNANDEZ.
[2020-07-18 17:00] VITALS: BP 158/74
--- NOTE | 2020-07-18 17:00 | NUR ---
WOUND CARE NOTE: WOUND CARE IN TO SEE PATIENT PER WOUND CARE CONSULT. PATIENT ADMITTED TO [facility] FOR NSTEMI AND EARLY SEPSIS. BEDSIDE NURSE NOTED SKIN INTEGRITY ISSUES UPON ADMISSION. PHOTOGRAPHS TAKEN AT THAT TIME FOR REFERENCE. PATIENT JENNIFER SCORE IS 14. PATIENT NOTED TO HAVE ABRASIONS TO LEFT AND RIGHT THIGHS, LEFT AND RIGHT SHINS, AND BLANCHABLE REDNESS TO THE SACRUM. ABRASIONS ARE ALL SCABBED OVER, LEFT OPEN TO AIR. BLANCHABLE REDNESS TO SACRUM TREATED WITH ZGUARD AND OPTIFOAM GENTLE SACRAL DRESSING. RECOMMEND: FREQUENT Q2HOUR REPOSITIONING CONDITION PERMITS. REDISTRIBUTE PRESSURE UTILIZING PILLOWS AND WEDGES. DAILY/PRN DRESSING CHANGE. SKIN/WOUND CARE PLAN. CONTINUED MONITORING BY WOUND CARE TEAM. Addendum: 07/18/20 at 1807 by LEXI STALLINGS RN RN Amended: Links added.
--- NOTE | 2020-07-18 19:30 | NUR ---
Opening Shift Note Assumed care of patient, awake and alert. A&Ox1. Patient aware of name. Patient lying in bed. No S/S of distress/SOB or pain. Safety measures maintained by keeping the bed locked in lowest position, 2 side rails up, personal items and call light within reach. Instructed on POC and to call for assist PRN, will continue to monitor for changes Q1hr and PRN.
[2020-07-18 21:32] VITALS: BP 145/68
[2020-07-19] MEDS: MORPHINE SULF INJ 2 MG/ML SYRINGE 1ML IV PRN ×2 (02:15→06:11)
[2020-07-19 04:43] VITALS: BP 139/82
--- NOTE | 2020-07-19 05:00 | NUR ---
Rounding on patient Patient A&Ox1. Patient was seen moaning with facial grimacing, restlessness, and clutching his chest. VS taken BP 150/113, HR 124, O2 92%, Temp 101.7, RR 28. Telemetry called for HR 150. Called for assistance from Ramón HERNANDEZ. EKG machine gathered, prepared to start EKG. Cooling measures applied to patient. Patient's altered and unable to answer questions. Patient continued to moan and shake. Tylenol administered. EKG performed, paged hospitalist to review strip. Awaiting hospitalist. Shaking increased, patient O2 saturation 82%, HR increased to 174. BS 118. RR 25. Unable to get BP patient moving. Code Assist called. voice pathologist Maryam and Bird, Oil Winterizer RT Muna, Awaiting Physician. See Code Assist Notes.
[2020-07-19] MEDS ORDERED: METOPROLOL TARTRATE 1MG/1ML-5ML VIAL IV ONE ×3 (05:26→05:41)
[2020-07-19] MEDS ORDERED: IPRATROPIUM BROM 0.5 MG/2.5ML INH SOL ONE ×2 (05:45→05:47)
[2020-07-19] MEDS ORDERED: ALBUTEROL SULF 2.5 MG/0.5ML(0.5%) NEB SOLN ONE ×2 (05:45→05:47)
--- NOTE | 2020-07-19 05:50 | NUR ---
F/U Code Assist Patient's restlessness improved, no shaking was noted. Temp. 100.4, HR 108, BP 123/61, RR 19. Was given new orders from hospitalist. Improvement in EKG noted by hospitalist and was signed. Will continue to monitor for changes.
[2020-07-19] MEDS: D5W/SOD CHL 0.45%/KCL 20MEQ 1,000 ML IV SCH ×2 (05:59→18:35)
[2020-07-19] MEDS: PIPERACILLIN-TAZOB 3.375GM 100 ML IV SCH ×3 (06:51→22:31)
--- NOTE | 2020-07-19 07:00 | NUR ---
Care endorsed to An HERNANDEZ
--- NOTE | 2020-07-19 07:30 | NUR ---
Opening Shift Note Assumed care of patient, awake and alert. No S/S of distress/SOB or pain. Instructed on POC and to call for assist PRN, will continue to monitor for changes Q1hr and PRN. Bed is locked, bed alarm on and bed is in lowest position. Call light within reach.
[2020-07-19 08:00] VITALS: BP 120/69
[2020-07-19 08:04] LABS: Albumin 2.4 g/dL (3.4-5.0); BUN/Creatinine Ratio 21.3; Calcium 8.4 mg/dL (8.5-10.1); Potassium 4.5 mmol/L (3.5-5.1)
[2020-07-19 08:13] LABS: Basophils # (auto) 0 10 ^3/uL (0-0.2); Basophils % (auto) 0.2 % (0.0-2.0); Eosinophils # (auto) 0 10 ^3/uL (0-0.8); Hematocrit 44.4 % (41.0-53.0); Hemoglobin 15.7 g/dL (13.5-17.5); Lymphocytes # (auto) 0.2 10 ^3/uL (0.4-5.4); Lymphocytes % (auto) 2.2 % (10.0-50.0); Mean Corpuscular Hemoglobin 29.9 pg (28.0-32.0); Mean Corpuscular Hgb Conc. 35.2 g/dL (32.0-36.0); Monocytes # (auto) 0.3 10 ^3/uL (0-1.3); Monocytes % (auto) 2.6 % (0.0-12.0); Neutrophils # (auto) 9.9 10 ^3/uL (1.6-8.6); Platelet Count (auto) 150 10^3/uL (140-450); Red Blood Cells 5.23 10^6/uL (4.5-5.90); Red Cell Distribution Width 14.7 % (11.8-14.3); White Blood Cell 10.4 10^3/uL (4.4-10.8)
[2020-07-19 08:15] LABS: Bilirubin, Total 15.4 mg/dL (0.2-1.0); Total Protein 6.3 g/dL (6.4-8.2)
[2020-07-19 09:00] VITALS: BP 120/69
[2020-07-19] MEDS: ASPirin 81 mg TAB PO SCH (09:43)
[2020-07-19] MEDS: FAMOTIDINE 20 MG TAB PO SCH ×2 (09:43→22:32)
[2020-07-19] MEDS: LISINOPRIL 10 MG TAB PO SCH (09:43)
[2020-07-19] MEDS: METOPROLOL TARTRATE 25 MG TAB PO SCH ×2 (09:44→22:32)
[2020-07-19 13:00] VITALS: BP 122/63
--- NOTE | 2020-07-19 16:51 | NUR ---
PAGESonal FALCON FROM [facility] IN REGARDS TO PATIENT GI CONSULTATION. WILL AWAIT PHONE CALL.
[2020-07-19 17:00] VITALS: BP 141/73
--- NOTE | 2020-07-19 19:30 | NUR ---
Opening Shift Note Assumed care of patient, awake and alert. A&Ox1. No S/S of distress/SOB or pain. Safety measures maintained by keeping the bed locked in lowest position, 2 side rails up, personal items and call light within reach. Bed alarm on. Instructed on POC and to call for assist PRN, will continue to monitor for changes Q1hr and PRN.
[2020-07-19 22:00] VITALS: BP 170/83
[2020-07-20] MEDS: MORPHINE SULF INJ 2 MG/ML SYRINGE 1ML IV PRN ×3 (01:02→15:05)
[2020-07-20 05:00] VITALS: BP 115/66
--- NOTE | 2020-07-20 05:00 | NUR ---
Paged Hospitalist to report positive blood cultures
[2020-07-20] MEDS: PIPERACILLIN-TAZOB 3.375GM 100 ML IV SCH ×3 (05:32→21:52)
--- NOTE | 2020-07-20 05:36 | NUR ---
Spoke to Hospitalist Debbie about positive blood cultures. No new orders at this time.
[2020-07-20 05:38] LABS: Basophils # (auto) 0 10 ^3/uL (0-0.2); Basophils % (auto) 0.3 % (0.0-2.0); Eosinophils # (auto) 0 10 ^3/uL (0-0.8); Hematocrit 44.5 % (41.0-53.0); Hemoglobin 15.3 g/dL (13.5-17.5); Lymphocytes # (auto) 0.3 10 ^3/uL (0.4-5.4); Lymphocytes % (auto) 2.2 % (10.0-50.0); Mean Corpuscular Hemoglobin 28.9 pg (28.0-32.0); Mean Corpuscular Hgb Conc. 34.4 g/dL (32.0-36.0); Mean Corpuscular Volume 84.1 fL (80.0-100.0); Monocytes # (auto) 0.7 10 ^3/uL (0-1.3); Monocytes % (auto) 5.3 % (0.0-12.0); Neutrophils # (auto) 12.4 10 ^3/uL (1.6-8.6); Neutrophils % (auto) 92.2 % (37.0-80.0); Nucleated Red Blood Cells % 0.1 %; Platelet Count (auto) 129 10^3/uL (140-450); Red Blood Cells 5.29 10^6/uL (4.5-5.90); Red Cell Distribution Width 14.8 % (11.8-14.3); White Blood Cell 13.4 10^3/uL (4.4-10.8)
[2020-07-20 05:50] LABS: INR 1.6 (0.9-1.15); Partial Thromboplastin Time 30.1 sec (23.0-31.2)
[2020-07-20 05:54] LABS: Potassium 3.5 mmol/L (3.5-5.1)
[2020-07-20 06:00] LABS: Albumin 2.2 g/dL (3.4-5.0); BUN/Creatinine Ratio 23.8; Bilirubin, Total 14.3 mg/dL (0.2-1.0); Calcium 8.3 mg/dL (8.5-10.1); Total Protein 5.9 g/dL (6.4-8.2)
--- NOTE | 2020-07-20 07:30 | NUR ---
Opening Shift Note Assumed care of patient, confused AOx0. S/S of pain, facial grimace, arm movement and grunting. Patient medicated for pain. Sitter at the bedside for safety. Instructed on POC and to call for assist PRN, will continue to monitor for changes Q1hr and PRN. Bed is locked and in lowest position. Call light within reach.
[2020-07-20] MEDS: HYDROcodone-ACET 5/325MG TAB PO PRN ×2 (07:47→17:21)
[2020-07-20] MEDS: ASPirin 81 mg TAB PO SCH (09:01)
[2020-07-20] MEDS: D5W/SOD CHL 0.45%/KCL 20MEQ 1,000 ML IV SCH ×2 (09:02→21:53)
[2020-07-20] MEDS: METOPROLOL TARTRATE 25 MG TAB PO SCH ×2 (09:02→21:53)
[2020-07-20] MEDS: FAMOTIDINE 20 MG TAB PO SCH ×2 (09:02→21:53)
[2020-07-20 09:10] VITALS: BP 122/78
[2020-07-20 12:26] VITALS: BP 113/65
--- NOTE | 2020-07-20 12:58 | NUR ---
DR. TERRIE FALCON AT BEDSIDE FOR GI CONSULTATION FOR OBSTRUCTIVE JAUNDICE. NEW ORDER TO DC ASPIRIN UNTIL AFTER PROCEDURE. DR. FALCON AWARE OF NO NEXT OF KIN FOR PATIENT TO SIGN CONSENT FOR ERCP. DR. FALCON WILL SIGN AND HOSPITALIST FOR ERCP FOR PATIENT SINCE PATIENT IS A0X0. DR. FALCON WILL HOLD ERCP DUE TO ASPIRIN ADMINISTRATION, DR. FALCON WILL TRY AND DO ERCP ON TUESDAY AFTER PATIENT HAS BEEN OFF ASPIRIN FOR 4 DAYS. WILL CONTINUE WITH POC.
[2020-07-20] MEDS ORDERED: LABETALOL HCL 5 MG/ML 4ML SYRINGE IV PRN (14:00)
[2020-07-20 15:59] VITALS: BP 138/77
--- NOTE | 2020-07-20 16:09 | NUR ---
Nutrition Assessment Notes Please refer to link for full assessment notes. Est Energy needs: 2860-1708 kcals (20-23 kcal/kgBW) Est Protein needs: 76-84 gms/day (1.0-1.1 gm/kgBW) Will continue to monitor and reassess prn. Addendum: 07/20/20 at [address] Amended: Links added.
[2020-07-20 22:00] VITALS: BP 124/62
[2020-07-21 05:00] VITALS: BP 138/82
[2020-07-21 06:00] LABS: Basophils # (auto) 0 10 ^3/uL (0-0.2); Basophils % (auto) 0.1 % (0.0-2.0); Eosinophils # (auto) 0 10 ^3/uL (0-0.8); Hematocrit 43.6 % (41.0-53.0); Hemoglobin 14.6 g/dL (13.5-17.5); Lymphocytes # (auto) 0.4 10 ^3/uL (0.4-5.4); Lymphocytes % (auto) 2.7 % (10.0-50.0); Mean Corpuscular Hemoglobin 28.2 pg (28.0-32.0); Mean Corpuscular Hgb Conc. 33.4 g/dL (32.0-36.0); Mean Corpuscular Volume 84.3 fL (80.0-100.0); Monocytes # (auto) 0.8 10 ^3/uL (0-1.3); Monocytes % (auto) 5.3 % (0.0-12.0); Neutrophils # (auto) 13.7 10 ^3/uL (1.6-8.6); Neutrophils % (auto) 91.9 % (37.0-80.0); Platelet Count (auto) 107 10^3/uL (140-450); Red Blood Cells 5.17 10^6/uL (4.5-5.90); Red Cell Distribution Width 15.1 % (11.8-14.3); White Blood Cell 14.9 10^3/uL (4.4-10.8)
[2020-07-21] MEDS: PIPERACILLIN-TAZOB 3.375GM 100 ML IV SCH (06:06)
--- NOTE | 2020-07-21 06:15 | NUR ---
PATIENT TURNED Q2H THROUGHOUT SHIFT. 07/20/20 2000 TURNED LEFT 07/20/20 2200 TURNED RIGHT 07/21/20 0000 TURNED SUPINE 07/21/20 0200 TURNED LEFT 07/21/20 0400 TURNED RIGHT 07/21/20 0600 TURNED SUPINE
[2020-07-21 06:16] LABS: Potassium 3.3 mmol/L (3.5-5.1)
[2020-07-21 06:24] LABS: Albumin 1.9 g/dL (3.4-5.0); BUN/Creatinine Ratio 24.2; Bilirubin, Total 17.2 mg/dL (0.2-1.0); Calcium 8.5 mg/dL (8.5-10.1); Total Protein 5.3 g/dL (6.4-8.2)
--- NOTE | 2020-07-21 07:30 | NUR ---
Opening Shift Note Assumed care of patient, patient is resting in bed. No S/S of distress/SOB or pain. Sitter at bedside for safety precautions. Instructed on POC and to call for assist PRN, will continue to monitor for changes Q1hr and PRN. Bed is locked and in lowest position. Call light within reach.
[2020-07-21 08:00] VITALS: BP 124/79
[2020-07-21 09:00] VITALS: BP 112/64
[2020-07-21] MEDS: METOPROLOL TARTRATE 25 MG TAB PO SCH ×2 (09:56→22:59)
[2020-07-21] MEDS: FAMOTIDINE 20 MG TAB PO SCH ×2 (09:57→22:59)
[2020-07-21] MEDS: PHYTONADIONE(VitK) ORAL Susp 10mg/10ml(1mg/ml) PO SCH (09:57)
[2020-07-21] MEDS: D5W/SOD CHL 0.45%/KCL 20MEQ 1,000 ML IV SCH (09:57)
[2020-07-21] MEDS ORDERED: POTASSIUM EFFERVESENT TAB 25 MEQ PO ONE (10:45)
[2020-07-21] MEDS ORDERED: METOPROLOL TARTRATE 25 MG TAB PO ONE (10:45)
[2020-07-21] MEDS ORDERED: DIGOXIN (250MCG/ML) 2 ML AMPULE IV ONE (11:15)
--- NOTE | 2020-07-21 11:56 | NUR ---
DR. AGUILERA/ DR. VILLA CONSULTED REGARDING PATIENT HR 130BPM. PATIENT GIVEN DIGOXIN 500 MCG/2 ML SLOW PUSH OVER 2 MIN PER WILLY VENETIAN BLIND MAKER ORDER. PATIENT TOLERATED MEDICATION ADMINISTRATION WELL WITH NO SIGNS OF DISTRESS. HR ASSESS AND WAS BROUGHT DOWN TO 120HR. WILL CONTINUE TO MONITOR.
[2020-07-21] MEDS: MORPHINE SULF INJ 2 MG/ML SYRINGE 1ML IV PRN ×2 (11:57→17:44)
[2020-07-21] MEDS ORDERED: VANCOMYCIN PER PHARMACY 0 MG IV SCH (12:30)
[2020-07-21 13:00] VITALS: BP 116/64
[2020-07-21] MEDS: VANCOMYCIN 1GM/250ML 250 ML IV SCH (13:28)
[2020-07-21] MEDS: ACETAMINOPHEN 325 MG TAB PO PRN (14:19)
--- NOTE | 2020-07-21 14:19 | NUR ---
PATIENT TEMP 103.9 COOLING MEASURES INITIATED AND MEDICATION GIVEN TO LOWER TEMP. WILL CONTINUE TO MONITOR.
[2020-07-21] MEDS: MEROPENEM 1GM IVPB 100 ML IV SCH ×2 (15:25→22:58)
[2020-07-21 17:00] VITALS: BP 129/51
--- NOTE | 2020-07-21 20:00 | NUR ---
Opening Shift Note Assumed care of patient. A/O x0. Sitter at bedside for safety. No S/S of distress/SOB or pain. NC in place, on 2L, with even and unlabored respirations. Aguilar is off the floor, patent and draining dark ap urine. Bed is locked, in lowest position, call light within reach, side rails up x2. Will continue to monitor for changes Q1hr and PRN.
[2020-07-21 22:00] VITALS: BP 127/60
[2020-07-22] VITALS (29 sets, daily range): BP systolic 95–131; BP diastolic 46–97
[2020-07-22] MEDS: D5W/SOD CHL 0.45%/KCL 20MEQ 1,000 ML IV SCH ×3 (00:24→21:00)
[2020-07-22] MEDS: MEROPENEM 1GM IVPB 100 ML IV SCH ×2 (05:34→20:45)
[2020-07-22] MEDS: ACETAMINOPHEN 325 MG TAB PO PRN (05:35)
--- NOTE | 2020-07-22 05:40 | NUR ---
Temp 102.1 Cooling measures initiated. Tylenol given. Will continue to monitor
--- NOTE | 2020-07-22 06:38 | NUR ---
Temp reassessment Temp reassessed at 101.5. Will inform day shift RN of temp
[2020-07-22 06:44] LABS: Basophils # (auto) 0 10 ^3/uL (0-0.2); Basophils % (auto) 0.3 % (0.0-2.0); Eosinophils # (auto) 0 10 ^3/uL (0-0.8); Hematocrit 41.6 % (41.0-53.0); Hemoglobin 13.9 g/dL (13.5-17.5); Lymphocytes # (auto) 0.3 10 ^3/uL (0.4-5.4); Mean Corpuscular Hemoglobin 28.4 pg (28.0-32.0); Mean Corpuscular Hgb Conc. 33.5 g/dL (32.0-36.0); Mean Corpuscular Volume 84.7 fL (80.0-100.0); Monocytes # (auto) 0.5 10 ^3/uL (0-1.3); Monocytes % (auto) 3.1 % (0.0-12.0); Neutrophils # (auto) 13.9 10 ^3/uL (1.6-8.6); Neutrophils % (auto) 94.6 % (37.0-80.0); Platelet Count (auto) 106 10^3/uL (140-450); Red Blood Cells 4.91 10^6/uL (4.5-5.90); Red Cell Distribution Width 14.9 % (11.8-14.3); White Blood Cell 14.7 10^3/uL (4.4-10.8)
[2020-07-22 06:53] LABS: INR 1.67 (0.9-1.15); Partial Thromboplastin Time 35.6 sec (23.0-31.2)
[2020-07-22] MEDS: VANCOMYCIN 1GM/250ML 250 ML IV SCH (06:57)
[2020-07-22 06:59] LABS: Albumin 1.7 g/dL (3.4-5.0); Calcium 8.3 mg/dL (8.5-10.1); Potassium 3.4 mmol/L (3.5-5.1)
[2020-07-22 07:04] LABS: Total Protein 4.8 g/dL (6.4-8.2)
--- NOTE | 2020-07-22 07:30 | NUR ---
Opening Shift Note Assumed care of patient, awake and alert. No S/S of distress/SOB or pain. Sitter at bedside for safety purposes. Instructed on POC and to call for assist PRN, will continue to monitor for changes Q1hr and PRN. Bed is locked and in lowest position. Call light within reach.
[2020-07-22] MEDS: HYDROcodone-ACET 5/325MG TAB PO PRN (08:12)
--- NOTE | 2020-07-22 10:40 | NUR ---
1030 07/22/20 I called [facility] and spoke with computer systems hardware analyst Chanel ([phone]) to request that authorization be provided for patient's continued stay. Per Dr. Escobar, patient is not stable for transfer to [facility] today-patient is septic, having an emergent ERCP today-I relayed this information to Chanel. Per Chanel patient is fully authorized until today 07/22/20 1000 (she will have updated authorization sent over to include 07/18 and 07/19 authorization). I requested that Chanel have assigned major case detective call me regarding authorization request. Per Chanel, once major case detective is assigned she will ask them to call me.
[2020-07-22] MEDS ORDERED: ACETAMINOPHEN 325 MG TAB PO PRN (11:00)
[2020-07-22 11:45] LABS: INR 1.73 (0.9-1.15)
--- NOTE | 2020-07-22 11:55 | NUR ---
PLASMA TRANSFUSION UNIT HAD DIFFERENT EXPIRATION DATE DUE TO IT BEING FOR FROZEN PLASMA. BLOOD BANK OKAY TO OVERRIDE EXPIRATION DATE IN VERIFICATION PROCESS FOR PLASMA UNIT.
--- NOTE | 2020-07-22 12:15 | NUR ---
DR. MOSES LOPES PAGED REGARDING PATIENT TEMP INCREASE FROM 99.1 TO 101.1 F DURING PLASMA TRANSFUSION. PER DR. MOSES THOMAS TO CONTINUE WITH TRANSFUSION.
--- NOTE | 2020-07-22 13:06 | NUR ---
PLASMA TRANSFUSION INITIATED PER DR. FALCON PATIENT WAS TRANSPORTED TO [facility] FOR EMERGENCY ERCP WITH DR. FALCON. PATIENT ONE UNIT OF PLASMA WAS TRANSFUSED A BOLUS PER DR. FALCON ORDER. SECOND UNIT OF PLASMA WILL BE FINISHED BY [facility] NURSE.
--- NOTE | 2020-07-22 13:15 | NUR ---
PATIENT TRANSPORTED VIA GURNEY TO [facility] FOR ERCP PROCEDURE WITH DR. FALCON. PATIENT TOLERATED TRANSPORT WELL WITH NO SIGNS OF DISTRESS OR SOB.
[2020-07-22] MEDS ORDERED: IOHEXOL 300 MG/ML 100ML BOTTLE IJ ONE (13:28)
[2020-07-22] MEDS ORDERED: MIDAZOLAM HCL 1MG/1ML-2 ML VIAL ONE ×2 (14:00→15:04)
[2020-07-22] MEDS ORDERED: fentaNYL CITRATE 100 MCG/2 ML VL ONE (14:00)
--- NOTE | 2020-07-22 14:00 | NUR ---
PER PRE-OP NURSE SECOND PLASMA TRANSFUSION WILL BE UPDATED WITH VITALS AND ASSESSMENT IT WAS FINISHED IN OR.
[2020-07-22] MEDS ORDERED: PROPOFOL 10 MG/ML 20 ML IV ONE (14:52)
--- NOTE | 2020-07-22 15:12 | NUR ---
assessment Patient is a 89 year old male who is confused. Prior to admission patient lived home alone and functioned with assistance from his friend and caregiver of 19 years Lashonda [phone] cell [phone]. Lashonda is a retired RN. Per Lashonda patients PCP is Dr Chan at [facility]. Patient has no family. Lashonda is patients emergency contact. Patient has a fww, cane, and wheelchair for home use. I informed Lashonda patients post discharge needs to be determined prior to discharge. I informed Lashonda I will continue to monitor and follow up as appropriate. Lashonda verbalized understanding. Addendum: 07/22/20 at 1516 by Sophie LEE Amended: Links added.
[2020-07-22] MEDS ORDERED: MORPHINE SULFATE 4 MG/ML SYR/VIAL IV PRN (15:15)
[2020-07-22] MEDS ORDERED: hydrALAZINE HCL 20 MG/ML VL IV PRN (15:15)
[2020-07-22] MEDS ORDERED: ONDANSETRON HCL 4 MG/2 ML VIAL IV PRN (15:15)
[2020-07-22] MEDS: ePHEDrine SULFATE 50 MG/ML AMP IV PRN ×2 (15:38→16:03)
[2020-07-22] MEDS ORDERED: HYDROCORTISONE SOD SUCC 100 MG/2ML INJ VIAL IV ONE (17:30)
[2020-07-22] MEDS ORDERED: LACTATED RINGER'S 500 ML IV ONE (17:30)
[2020-07-22] MEDS ORDERED: LORazepam 2MG/ML-1ML VIAL ONE (18:42)
[2020-07-22] MEDS: LORazepam 2MG/ML-1ML VIAL IV PRN (18:43)
[2020-07-22] MEDS ORDERED: NOREPINEPHRINE 8 MG/250ML KIT 250 ML IV ONE (19:00)
--- NOTE | 2020-07-22 19:30 | NUR ---
REPORT/OPEN NOTES REPORT RECEIVED FROM ITEM PROCESSOR AND BUNCHER MACHINE RECEIVED INTUBATED POST ERCP WITH ONGOING IV LEVOPHED AT 5MCG/MIN FULL ASSESSMENT DONE-REFER INTERVENTIONS
[2020-07-22] MEDS: NOREPINEPHRINE 8 MG/250ML KIT 250 ML IV SCH (20:00)
[2020-07-22] MEDS: PHYTONADIONE(VitK) ORAL Susp 10mg/10ml(1mg/ml) PO SCH (20:02)
[2020-07-22] MEDS: METOPROLOL TARTRATE 25 MG TAB PO SCH ×2 (20:02→22:00)
[2020-07-22] MEDS: FAMOTIDINE 20 MG TAB PO SCH ×2 (20:02→22:00)
[2020-07-22] MEDS: MORPHINE SULF INJ 2 MG/ML SYRINGE 1ML IV PRN (21:26)
[2020-07-22] MEDS: DAPTOmycin 500 MG in SODIUM CHL 0.9% 50 ML IV SCH (22:23)
--- NOTE | 2020-07-22 22:52 | NUR ---
RT Transport Note: Patient transported to ICU 111 with MARY CONTRERAS. Patient on relationship manager with alarms set and audible, ambu-bag/mask connected to 02 tank. Patient placed back on vent with no adverse reaction noted. Transport completed without incident.
--- NOTE | 2020-07-22 23:00 | NUR ---
PAGED HOSPITALIST FOR SEDATION
[2020-07-22] MEDS ORDERED: PROPOFOL 100 ML IV SCH (23:18)
--- NOTE | 2020-07-22 23:41 | NUR ---
REPORT GIVEN TO MARY MAGANA
--- NOTE | 2020-07-22 23:45 | NUR ---
REPORT RECEIVED AND CARE ASSUMED PT ON MECHANICAL VENTILATOR, TOLERATING WELL WITH NO SEDATION AT THIS TIME, THERE IS PLANS FOR POSSIBLE CPAP IN THE MORNING. LEVOPHED GTT RUNNING FOR BP SUPPORT. VSS WITH NO DISTRESS OBSERVED. ECHEVERRIA IN PLACE AND DRAINING APPROPRIATELY. PT TURNED AND REORIENTED TO PLACE AND SITUATION. WILL CONTINUE TO MONITOR AND REASSESS.
[2020-07-23] VITALS (94 sets, daily range): BP systolic 89–139; BP diastolic 45–81
[2020-07-23] MEDS: HYDROCORTISONE SOD SUCC 100 MG/2ML INJ VIAL IV SCH ×3 (00:04→11:59)
[2020-07-23] MEDS: LORazepam 2MG/ML-1ML VIAL IV PRN ×2 (02:31→19:43)
[2020-07-23 03:44] LABS: Eosinophils # (auto) 0 10 ^3/uL (0-0.8); Nucleated Red Blood Cells % 0.1 %; Red Cell Distribution Width 15.6 % (11.8-14.3)
[2020-07-23 03:50] LABS: Basophils # (auto) 0.1 10 ^3/uL (0-0.2); Basophils % (auto) 0.7 % (0.0-2.0); Hematocrit 39.5 % (41.0-53.0); Lymphocytes # (auto) 0.4 10 ^3/uL (0.4-5.4); Lymphocytes % (auto) 1.6 % (10.0-50.0); Mean Corpuscular Hgb Conc. 32.9 g/dL (32.0-36.0); Mean Corpuscular Volume 85.2 fL (80.0-100.0); Monocytes # (auto) 0.2 10 ^3/uL (0-1.3); Monocytes % (auto) 1.1 % (0.0-12.0); Neutrophils # (auto) 20.7 10 ^3/uL (1.6-8.6); Neutrophils % (auto) 96.6 % (37.0-80.0); Platelet Count (auto) 95 10^3/uL (140-450); Red Blood Cells 4.64 10^6/uL (4.5-5.90); White Blood Cell 21.5 10^3/uL (4.4-10.8)
[2020-07-23 04:02] LABS: Albumin 1.7 g/dL (3.4-5.0); Potassium 3.7 mmol/L (3.5-5.1)
[2020-07-23 04:06] LABS: BUN/Creatinine Ratio 29.1; Bilirubin, Total 15.3 mg/dL (0.2-1.0); Total Protein 4.9 g/dL (6.4-8.2)
--- NOTE | 2020-07-23 04:40 | NUR ---
SKIN TEAR/ABRASION NOTED TO RIGHT LATERAL HIP. PHOTO TAKEN FOR REFERENCE. OPTIFOAM APPLIED FOR PREVENTION.
[2020-07-23] MEDS: MEROPENEM 1GM IVPB 100 ML IV SCH (06:13)
--- NOTE | 2020-07-23 07:30 | NUR ---
REPORT RECEIVED ASSUMING CARE
--- NOTE | 2020-07-23 08:30 | NUR ---
DR FALCON AT BEDSIDE, EXAMINED PATIENT
[2020-07-23] MEDS: FAMOTIDINE 20 MG TAB PO SCH ×2 (10:00→21:56)
[2020-07-23] MEDS: DIGOXIN 0.125 MG TAB PO SCH (10:00)
[2020-07-23] MEDS: PHYTONADIONE(VitK) ORAL Susp 10mg/10ml(1mg/ml) PO SCH (10:00)
[2020-07-23] MEDS: METOPROLOL TARTRATE 25 MG TAB PO SCH ×2 (10:00→21:56)
--- NOTE | 2020-07-23 11:47 | NUR ---
Nutrition Followup Notes Pt wt is 78.0 kg Pt was sleeping when rounded this morning. Pt is s/p surgery, with a Cardiac diet, appetite is inadequate aeb ave 13% PO intake over 3 meals. Est Energy needs: 7859-5480 kcals (20-23 kcal/kgBW) Est Protein needs: 76-84 gms/day (1.0-1.1 gm/kgBW) Will continue to monitor and reassess prn. LABS: BUN 48 H, CR 1.65 H, GFR 42 L, GLUC 142 H, CA 8.0 L, ALB 1.7 L, BILI 15.3 H, AST 63 H, ALK PHOS 241 H GI: Pt had 1 BM on 07/21 per RN doc BS: 15 mod risk. Refer to wound assessment report for full details. PES: Altered nutrition related lab values r.t current medical condition aeb hyperglycemia, hypocalcemia, hyperbilirubinemia, elev LFTs, severe hypoalbuminemia Comments Will continue to monitor PO status, skin status, pertinent labs and weight trends. Will f/u in 3-5 days. 1) Continue to carefully monitor pt PO intake to meet at least 75% of meals 2) If albumin continues trending down consider Prostat 1 pkt BID 3) Continue current plan of care
--- NOTE | 2020-07-23 12:43 | NUR ---
07/23/20 1239 Called [facility] and spoke with [facility] health policy analyst and stated the patient has authorization for 07/25/20 @1000, #[id number]
--- NOTE | 2020-07-23 13:15 | NUR ---
DR LOPES AT BEDSIDE, GAVE ORDERS AND OK TO EXTUBATE. RT AWARE.
--- NOTE | 2020-07-23 13:45 | NUR ---
EXTUBATED PT AT 1345 WITH NO INCIDENT REPORTED. PT PLACED ON 8L CA AT 30% FIO2, NO STRIDOR NOTED, CLEAR BS, HR 95, RR 18, BP 112/68. WILL CONTINUE TO MONITOR PT.
[2020-07-23] MEDS: D5W/SOD CHL 0.45%/KCL 20MEQ 1,000 ML IV SCH (15:10)
[2020-07-23] MEDS: DAPTOmycin 500 MG in SODIUM CHL 0.9% 50 ML IV SCH (17:06)
--- NOTE | 2020-07-23 17:26 | NUR ---
SPOKE WITH DR FALCON UPDATED ON STATUS AND THAT PATIENT IS EXTUBATED WITH NEURO STATUS A/O X 1. GAVE OK FOR BEDSIDE SWALLOW EVAL. AWARE RN WILL NOT DO SWALLOW EVAL UNTIL 6 HRS DUE EXTUBATION TIME OF 1345.
[2020-07-23] MEDS: CeftoloZANE-TAZOB 1g/0.5g in D5W 5% 100 ML IV SCH (17:49)
[2020-07-23] MEDS: NOREPINEPHRINE 8 MG/250ML KIT 250 ML IV SCH (18:52)
--- NOTE | 2020-07-23 19:45 | NUR ---
NUTRITION NOTE PT DOES WELL WITH ICE CHIPS AND WATER THROUGH A STRAW WHEN PLACED IN HIGH FOWLERS POSITION. NO S/S OF ASPIRATION PRESENT, LUNGS ARE CLEAR/DIMINISHED. ABLE TO FOLLOW SIMPLE COMMANDS. WILL CONTINUE TO ADVANCE DIET TOLERATED.
[2020-07-23] MEDS: metroNIDAZOLE 500MG/100ML 100 ML IV SCH (20:27)
--- NOTE | 2020-07-23 23:29 | NUR ---
PT CARE GAVE PT BED BATH. PARTIAL ANGELIC AND GOWN CHANGE DONE. PT HAD SMALL, LOOSE LIGHT COLORED STOOL. OPTIFOAM TO SACRUM REPLACED. OPTIFOAM TO LEFT LOWER LEG IN PLACE. PT TURNED AND ORAL CARE DONE. PT TOLERATED WELL WITH NO DISTRESS.
[2020-07-23] MEDS: MORPHINE SULF INJ 2 MG/ML SYRINGE 1ML IV PRN (23:34)
[2020-07-24] VITALS (80 sets, daily range): BP systolic 114–153; BP diastolic 61–90
[2020-07-24] MEDS: CeftoloZANE-TAZOB 1g/0.5g in D5W 5% 100 ML IV SCH ×3 (01:57→18:11)
[2020-07-24] MEDS: LORazepam 2MG/ML-1ML VIAL IV PRN ×2 (01:58→21:40)
[2020-07-24] MEDS: metroNIDAZOLE 500MG/100ML 100 ML IV SCH ×3 (04:06→20:00)
[2020-07-24 05:34] LABS: Basophils # (auto) 0 10 ^3/uL (0-0.2); Basophils % (auto) 0.1 % (0.0-2.0); Eosinophils # (auto) 0 10 ^3/uL (0-0.8); Hematocrit 45.7 % (41.0-53.0); Hemoglobin 14.8 g/dL (13.5-17.5); Lymphocytes # (auto) 0.6 10 ^3/uL (0.4-5.4); Lymphocytes % (auto) 3.1 % (10.0-50.0); Mean Corpuscular Hemoglobin 28.4 pg (28.0-32.0); Mean Corpuscular Hgb Conc. 32.3 g/dL (32.0-36.0); Mean Corpuscular Volume 87.8 fL (80.0-100.0); Monocytes # (auto) 0.8 10 ^3/uL (0-1.3); Monocytes % (auto) 4.6 % (0.0-12.0); Neutrophils # (auto) 16.9 10 ^3/uL (1.6-8.6); Neutrophils % (auto) 92.2 % (37.0-80.0); Nucleated Red Blood Cells % 0.1 %; Platelet Count (auto) 134 10^3/uL (140-450); Red Blood Cells 5.21 10^6/uL (4.5-5.90); Red Cell Distribution Width 16.3 % (11.8-14.3); White Blood Cell 18.4 10^3/uL (4.4-10.8)
[2020-07-24 05:48] LABS: Potassium 3.6 mmol/L (3.5-5.1)
[2020-07-24 05:57] LABS: Albumin 1.7 g/dL (3.4-5.0); BUN/Creatinine Ratio 38.6; Bilirubin, Total 9.1 mg/dL (0.2-1.0); Total Protein 5.2 g/dL (6.4-8.2)
[2020-07-24] MEDS: MORPHINE SULF INJ 2 MG/ML SYRINGE 1ML IV PRN ×3 (06:08→22:41)
[2020-07-24] MEDS: D5W/SOD CHL 0.45%/KCL 20MEQ 1,000 ML IV SCH ×2 (06:57→16:15)
--- NOTE | 2020-07-24 07:45 | NUR ---
OPENING SHIFT NOTE: Received report from [facility] RN Neelima. Assumed care of patient. Received patient lying in bed, connected to bedside monitor with alarms in place. Patient is alert to self with no s/s of distress noted. Patient moans and groans, but denies pain when asked. Patient on RA with O2 sats >92%. Lung sounds clear and diminished in the bases. Patient with two PIVs: L wrist #20 and R hand #22 both lines patent and flush. Patient with D5.45NS + 20KCL running at 75ml/hr to left wrist. Aguilar draining to gravity dark yellow UOP. Patient with purple discoloration noted to sacrum, wound consult ordered. Changed optifoam dressing due to smear of loose stool. Patient bed side swallow eval completed by this RN. Patient able to swallow water and apple sauce without difficulty. Bed in lowest position, will continue to monitor.
--- NOTE | 2020-07-24 11:00 | NUR ---
MD Dr Lara at bedside. Orders received.
[2020-07-24] MEDS: METOPROLOL TARTRATE 25 MG TAB PO SCH ×2 (11:13→22:04)
[2020-07-24] MEDS: FAMOTIDINE 20 MG TAB PO SCH ×2 (11:13→22:04)
--- NOTE | 2020-07-24 12:44 | NUR ---
MD Dr Roe at bedside to see patient.
--- NOTE | 2020-07-24 14:10 | NUR ---
MD Dr Su at bedside. No new orders received.
--- NOTE | 2020-07-24 14:23 | NUR ---
PT Tien, Physical therapy at bedside.
[2020-07-24] MEDS: DAPTOmycin 500 MG in SODIUM CHL 0.9% 50 ML IV SCH (15:00)
--- NOTE | 2020-07-24 16:13 | NUR ---
PATIENT CARES Patient incontinent of stool. Small amount of loose pasty yellow stool noted. Cleaned patient and provided pericare. Photos taken of sacral wound, Zguard and Optifoam applied. Wound consult already placed and pending assessment.
--- NOTE | 2020-07-24 18:00 | NUR ---
WOUND CARE NOTE: PATIENT HAS NEW WOUND CONCERN. IN TO SEE PATIENT FOR ASSESSMENT. PATIENT CONTINUES TO REST ON ICU LOW AIRLOSS MATTRESS. HE IS NOW TELE STATUS, AWAITING AVAILABLE TELE BED. PATIENT WILL NEED AN AIR MATTRESS ORDERED AT THAT TIME. CURRENT JENNIFER SCORE IS 15. PATIENT TURNED TO LEFT SIDE. HE IS NOTED TO HAVE AN EARLY DTI THAT IS PURPLE/DARK RED TO LEFT AND INTRAGLUTEAL SACRUM. NO OPEN OR DRAINING AREAS NOTED. OPTIFOAM GENTLE SACRAL DRESSING IN PLACE. ADVISED BEDSIDE NURSE TO PROVIDE SIDE TO SIDE POSITIONING, AVOIDING SUPINE. UPDATED SKIN/WOUND CARE PLAN. RECOMMEND: SIDE TO SIDE POSITIONING, AVOIDING SUPINE, AIR MATTRESS ONCE MOVED TO TELE, CONTINUATION WITH ALL WOUND CARE ORDERS PREVIOUSLY PRESCRIBED BY MD. WOUND CARE TEAM WILL CONTINUE TO MONITOR. Addendum: 07/24/20 at 1830 by Angelina Tijerina RN Amended: Links added.
--- NOTE | 2020-07-24 19:00 | NUR ---
END OF SHIFT Patient resting in bed after eating minimal amount of dinner. Patient is a tele downgrade awaiting for a bed. Patient is more talkative with nursing, asking when he can go home. Patient remains on room air with O2 sats >92%. Patient with one PIV #20 L wrist with D5.45NS +20KCL @ 75ml/hr. Report to be given to CHAZ HERNANDEZ.
--- NOTE | 2020-07-24 21:12 | NUR ---
ADMITTED ON 07/16/2020 AFTER BEING FOUND DOWN BY CAREGIVER AT HOME. MEDICAL DIAGNOSIS: NSTEMI, EARLY SEPSIS AND UTI. ORIGINALLY ON TELEMETRY. HAD SURGERY ON 07/22/20 ,ERCP DONE BY DR FALCON. BILIARY STENT PLACED. INTUBATED FOR OR AND WAS THEN BROUGHT HERE. EXTUBATED ON 07/23/20. CURRENTLY ON ROOM AIR. O2 SATURATION 92%. COARSE , NONPRODUCTIVE COUGH. LUNGS CLEAR, BUT DIMINISHED. UNDERLYING HEART RHYTHM IS ATRIAL FIB. 15% V PACED. OCCASIONAL PVCS. ON A PUREE DIET. RIGHT FOREARM SWELLING. IV LEFT WRIST 20 G WITH D5 1/2 NS WITH 20MEQ OF KCL AT 75CC/HR. NO SWELLING AT SITE. ALL PULSES PALPABLE. PUPILS 4 AND BRISK. HAS SCABBED ABRASIONS ON LEFT AND RIGHT LOWER LEGS. SCDS ON. HAD A BM TODAY. PASSED HIS SWALLOW EVAL AND IS NOW ON A PUREE DIET. HAS A VERY DISTRESSED LOOK ON HIS FACE. BENJAMÍN.
--- NOTE | 2020-07-24 21:30 | NUR ---
LORAZEPAM GIVEN. IT HAS HELPED HIM RELAX. STILL MOANS BUT IS MORE RESTFUL.
--- NOTE | 2020-07-24 22:00 | NUR ---
PATIENT MOANS ALL THE TIME. IN ASKING HIM IF HE HAS PAIN, HE SAYS YES, BUT FAILS TO TELL ME WHERE IT IS OR HOW MUCH. I AM WILLING TO TRY THE MORPHINE 1 MG IV.
[2020-07-25] VITALS (33 sets, daily range): BP systolic 134–176; BP diastolic 69–97
--- NOTE | 2020-07-25 | NUR ---
ORIENTED TO NAME ONLY. MOANING, DENIES PAIN. LUNGS CLEAR. VERY COARSE, NONPRODUCTIVE COUGH. DOES NOT MOVE EXTREMITIES OFTEN. PITTING EDEMA IN LEGS. GOOD URINE OUTPUT. IV SHOWS NO SWELLING. UNDERLYING RHYTHM IS ATRIAL FIB, CONTROLLED RATE OF 74. 10-20% V PACED. OCCASIONAL PVCS.
--- NOTE | 2020-07-25 02:00 | NUR ---
MOANING A LOT. PUT A NEW DRAW SHEET UNDER HIM. NO CHANGE IN MENTATION. MORPHINE GIVEN. REPOSITIONED TO LEFT. ATRIAL FIB, V PACED OCCASIONALLY.
[2020-07-25] MEDS: CeftoloZANE-TAZOB 1g/0.5g in D5W 5% 100 ML IV SCH ×3 (02:27→18:33)
[2020-07-25] MEDS: D5W/SOD CHL 0.45%/KCL 20MEQ 1,000 ML IV SCH ×2 (02:31→18:33)
--- NOTE | 2020-07-25 03:25 | NUR ---
LAB DRAWING BLOOD
[2020-07-25] MEDS: LORazepam 2MG/ML-1ML VIAL IV PRN (03:51)
[2020-07-25] MEDS: metroNIDAZOLE 500MG/100ML 100 ML IV SCH ×3 (04:00→20:49)
--- NOTE | 2020-07-25 04:00 | NUR ---
LOST THE ONLY PERIPHERAL IV TO LEAKING. UNABLE TO START ANOTHER IV. ORDER PUT IN FOR A MIDLINE. NEW PAD UNDER PATIENT. THE ATIVAN AND MORPHINE DOSE DID NOT SEEM TO HELP WITH THE CONTINUOUS MOANING. REPOSITIONED.
[2020-07-25 04:47] LABS: Basophils # (auto) 0 10 ^3/uL (0-0.2); Basophils % (auto) 0.2 % (0.0-2.0); Eosinophils # (auto) 0.2 10 ^3/uL (0-0.8); Eosinophils % (auto) 1.4 % (0.0-7.0); Hematocrit 46.5 % (41.0-53.0); Hemoglobin 15.3 g/dL (13.5-17.5); Lymphocytes # (auto) 1.1 10 ^3/uL (0.4-5.4); Lymphocytes % (auto) 6.6 % (10.0-50.0); Mean Corpuscular Hemoglobin 27.8 pg (28.0-32.0); Mean Corpuscular Volume 84.5 fL (80.0-100.0); Monocytes # (auto) 1.5 10 ^3/uL (0-1.3); Monocytes % (auto) 9.2 % (0.0-12.0); Neutrophils # (auto) 13.2 10 ^3/uL (1.6-8.6); Neutrophils % (auto) 82.6 % (37.0-80.0); Nucleated Red Blood Cells % 0.1 %; Platelet Count (auto) 160 10^3/uL (140-450); Red Cell Distribution Width 16.1 % (11.8-14.3)
[2020-07-25 05:02] LABS: Albumin 2.1 g/dL (3.4-5.0); Calcium 8.5 mg/dL (8.5-10.1); Potassium 3.6 mmol/L (3.5-5.1)
[2020-07-25 05:06] LABS: BUN/Creatinine Ratio 38.5; Bilirubin, Total 8.9 mg/dL (0.2-1.0); Total Protein 5.9 g/dL (6.4-8.2)
[2020-07-25 05:13] LABS: INR 1.59 (0.9-1.15); Partial Thromboplastin Time 31.3 sec (23.0-31.2)
--- NOTE | 2020-07-25 06:00 | NUR ---
SBP IS RISING. SYSTOLIC HAS MOSTLY BEEN IN THE 160S. SCDS ON. URINE OUTPUT GOOD. TAKING PO WATER WELL. VERY COARSE, NONPRODUCTIVE COUGH
[2020-07-25] MEDS: FAMOTIDINE 20 MG TAB PO SCH ×2 (08:56→22:00)
[2020-07-25] MEDS: DIGOXIN 0.125 MG TAB PO SCH (08:56)
[2020-07-25] MEDS: METOPROLOL TARTRATE 25 MG TAB PO SCH ×2 (08:58→22:00)
--- NOTE | 2020-07-25 09:20 | NUR ---
Midline Placement: Patient educated on need for midline placement. All risks and benefits explained and all questions and concerns addresses prior to procedure. 18g/10cm midline inserted via LEFT BASILIC vein using Ultrasound. Sterile technique utilized. Blood return obtained from SINGLE lumen and flushed easily with NS using proper technique. Midline secured with saline lock; biodisc and occlusive dressing applied. Primary RN notified. Midline lot # [id number].
[2020-07-25] MEDS ORDERED: amLODIPine BESYLATE 5 MG TAB PO SCH (10:00)
[2020-07-25] MEDS ORDERED: FLUCONAZOLE 200MG/100ML 100 ML IV ONE (11:30)
[2020-07-25] MEDS: Ensure HIGH Protein Chocolate 8oz Bottle PO SCH ×2 (12:18→18:33)
--- NOTE | 2020-07-25 14:00 | NUR ---
HOLD P.T. TODAY PER RN.
--- NOTE | 2020-07-25 14:15 | NUR ---
I faxed transfer order to [facility].
--- NOTE | 2020-07-25 14:42 | NUR ---
Nutrition Consult/Followup Notes Wt: 78.4 kg Pt was sleeping when rounded this morning. Pt is s/p surgery, with a Cardiac puree diet, with inadequate Po of < 50% x 3 per RN doc Est Energy needs: 1493-2507 kcals (20-23 kcal/kgBW), Est Protein needs: 76-84 gms/day (1.0-1.1 gm/kgBW). Will continue to monitor and reassess prn. LABS: BUN 52 H CREAT 1.35 H ALEC 8.9 H ALB 2.1 L GI: Pt had 1 BM on 07/21 per RN doc BS: 15 mod risk wounds. Refer to wound assessment report for full details. PES: Altered nutrition related lab values r.t current medical condition aeb hyperglycemia, hypocalcemia, hyperbilirubinemia, elev LFTs, severe hypoalbuminemia Comments Will continue to monitor PO status, skin status, pertinent labs and weight trends. Will f/u in 3-5 days. 1) Consdier MVI/C bid. 2) If albumin continues trending down consider Prostat 1 pkt BID. 3) Consider ensure enlive 1 carton bid if PO continues to be low. 4) Continue current plan of care
[2020-07-25] MEDS ORDERED: FUROSEMIDE 20 MG/2 ML VIAL IV ONE (14:45)
[2020-07-25] MEDS: DAPTOmycin 500 MG in SODIUM CHL 0.9% 50 ML IV SCH (14:51)
[2020-07-25] MEDS: MORPHINE SULF INJ 2 MG/ML SYRINGE 1ML IV PRN (14:51)
--- NOTE | 2020-07-25 16:26 | NUR ---
162 07/25/20 I called [facility] and spoke with quantitative research analyst Rosalio regarding transfer order. Per Rosalio they did receive the transfer order, he will assign to case coordinator Eden-if a bed becomes available they will contact nurse's station. I provided Rosalio with contact information for Dr. Escobar (pageable through hospital pocket grinder operator) and nurse's station. Rosalio confirmed that inpatient authorization is effective until 07/29/20 1000.
--- NOTE | 2020-07-25 16:50 | NUR ---
UPDATED [facility] CASE MANAGEMENT ON PATIENTS CURRENT STATUS. FRANCIS BASEBALL PLAYER.
--- NOTE | 2020-07-25 17:35 | NUR ---
ICU pt transferred to floor [facility] transferred to [facility] via BED WITH TELE BOX.ALL patient personal belongings transferred with patient to receiving floor. Patient care transferred to WILL RN. REFRIGERATED ANTIBIOTICS BROUGHT AND PHYSICALLY HANDED TO WILL RN.
--- NOTE | 2020-07-25 17:45 | NUR ---
Transfer from ICU SBAR received of HANS CHAUHAN PT transfered to [facility] via [facility] on surveillance system monitor. All patient medications and personal belongings transfered with patient to receiving floor. No sign of distress noted on arrival to unit.
[2020-07-25] MEDS ORDERED: FUROSEMIDE 20 MG/2 ML VIAL IV SCH (18:00)
--- NOTE | 2020-07-25 19:00 | NUR ---
Opening note Assumed care. Patient in bed, awake, no signs of SOB or respiratory distress. Patient moaning all the time, but denies pain. Bed on lowest position, side rails up x2 for safety. Will continue to monitor.
--- NOTE | 2020-07-25 22:21 | NUR ---
Initiated [facility] transfer Family was contacted and Lash[facility] is aware of patient's transfer status and the bed where he will be.
--- NOTE | 2020-07-25 22:22 | NUR ---
Skin assessment Wound pictures taken, patient clean and dry. Tele box was removed from patient.
--- NOTE | 2020-07-25 22:34 | NUR ---
Called [facility], gave report to [facility] receiving nurse.
--- NOTE | 2020-07-26 00:07 | NUR ---
PATIENT WAS PICKED UP BY TRANSPORT, REPORT GIVEN. PATIENT WAS AWAKE, NO SIGNS OF DISTRESS.
[2020-07-26] MEDS ORDERED: FLUCONAZOLE 200MG/100ML 100 ML IV SCH (10:00)
== END 2020-07-26 00:07 | disposition short-term general hospital (02) | DRG 871 ==
LOC: ER 17:13 → EDBD 17:13 → TELE 17:14 → TELE-EAST 07-17 09:00 → WEST WING 07-18 13:54 → TELE-WESTW 07-18 13:55 → ICU WEST 07-22 22:40 → TELE-WESTW 07-25 17:40
PROVIDERS: ADMIT Nurse Practitioner; ATTEND Internal Medicine
PROC: 5A1945Z Respiratory Ventilation, 24-96 Consecutive Hours (ICD-10-PCS; 2020-07-22)
PROC: 0BH17EZ Insertion of Endotracheal Airway into Trachea, Via Natural or Artificial Opening (ICD-10-PCS; 2020-07-22)
PROC: 0FC78ZZ Extirpation of Matter from Common Hepatic Duct, Via Natural or Artificial Opening Endoscopic (ICD-10-PCS; 2020-07-22)
PROC: BF101ZZ Fluoroscopy of Bile Ducts using Low Osmolar Contrast (ICD-10-PCS; 2020-07-22)
PROC: 30233K1 Transfusion of Nonautologous Frozen Plasma into Peripheral Vein, Percutaneous Approach (ICD-10-PCS; 2020-07-22)
PROC: 0F798DZ Dilation of Common Bile Duct with Intraluminal Device, Via Natural or Artificial Opening Endoscopic (ICD-10-PCS; principal; 2020-07-22 13:50)
PROC: 4B02XSZ Measurement of Cardiac Pacemaker, External Approach (ICD-10-PCS; 2020-07-25)
DX: A41.52 Sepsis due to Pseudomonas (principal); N17.0 Acute kidney failure with tubular necrosis; G92 Toxic encephalopathy; I21.A1 Myocardial infarction type 2; J96.00 Acute respiratory failure, unspecified whether with hypoxia or hypercapnia; I48.20 Chronic atrial fibrillation, unspecified; N39.0 Urinary tract infection, site not specified; D68.9 Coagulation defect, unspecified; E87.0 Hyperosmolality and hypernatremia; K80.31 Calculus of bile duct with cholangitis, unspecified, with obstruction; K72.90 Hepatic failure, unspecified without coma; E87.6 Hypokalemia; Z20.828 Contact with and (suspected) exposure to other viral communicable diseases; E86.0 Dehydration; R79.89 Other specified abnormal findings of blood chemistry; I27.20 Pulmonary hypertension, unspecified; E78.5 Hyperlipidemia, unspecified; E83.51 Hypocalcemia; K21.9 Gastro-esophageal reflux disease without esophagitis; R65.20 Severe sepsis without septic shock; I12.9 Hypertensive chronic kidney disease with stage 1 through stage 4 chronic kidney disease, or unspecified chronic kidney disease; N18.9 Chronic kidney disease, unspecified; N40.0 Benign prostatic hyperplasia without lower urinary tract symptoms; Z95.0 Presence of cardiac pacemaker; Z79.01 Long term (current) use of anticoagulants; D69.6 Thrombocytopenia, unspecified; G62.9 Polyneuropathy, unspecified
CPT/HCPCS: 36415; 36600; 70450; 71045; 71275; 74018; 74176; 76000; 76705; 80048; 80053; 81001; 82140; 82728; 82805; 82962; 83605; 83690; 83735; 83880; 84443; 84484; 85025; 85379; 85610; 85730; 86141; 86850; 86900; 86901; 87040; 87070; 87077; 87081; 87186; 87205; 87426; 93005; 93306; 93970; 94002; 94003; 94640; C2625; G0378; J0610; J0696; J1956; J2185; J2250; J2543; J2704; J3480; J3490; J7060

== ENCOUNTER 2020-08-21 20:01 | Emergency (ER) | payer OTHER ==
[~2020-08-21] VITALS: Ht 180.3 cm; Wt 72.3 kg
[2020-08-21] MEDS ORDERED: SODIUM CHLORIDE 0.9% 500 ML IV ONE (20:30)
[2020-08-21 21:03] LABS: Basophils # (auto) 0.1 10 ^3/uL (0-0.2); Basophils % (auto) 0.9 % (0.0-2.0); Eosinophils # (auto) 0.1 10 ^3/uL (0-0.8); Eosinophils % (auto) 1.2 % (0.0-7.0); Hematocrit 26.9 % (41.0-53.0); Hemoglobin 9.3 g/dL (13.5-17.5); Lymphocytes # (auto) 1.3 10 ^3/uL (0.4-5.4); Lymphocytes % (auto) 12.8 % (10.0-50.0); Mean Corpuscular Hgb Conc. 34.5 g/dL (32.0-36.0); Mean Corpuscular Volume 86.8 fL (80.0-100.0); Monocytes # (auto) 0.9 10 ^3/uL (0-1.3); Monocytes % (auto) 8.9 % (0.0-12.0); Neutrophils # (auto) 7.8 10 ^3/uL (1.6-8.6); Neutrophils % (auto) 76.2 % (37.0-80.0); Platelet Count (auto) 277 10^3/uL (140-450); Red Cell Distribution Width 16.6 % (11.8-14.3); White Blood Cell 10.3 10^3/uL (4.4-10.8)
[2020-08-21 21:19] LABS: Albumin 2.3 g/dL (3.4-5.0); Calcium 7.7 mg/dL (8.5-10.1); Magnesium 2.4 mg/dL (1.6-2.6); Potassium 3.8 mmol/L (3.5-5.1)
[2020-08-21 21:25] LABS: BUN/Creatinine Ratio 14.7; Bilirubin, Total 1.7 mg/dL (0.2-1.0); Total Protein 5.8 g/dL (6.4-8.2)
[2020-08-21 21:57] LABS: Urine Bacteria NONE SEEN /hpf (None Seen); Urine Blood Negative /uL (Negative); Urine WBC 5 /hpf (0 - 3)
[2020-08-21 22:10] LABS: INR 1.13 (0.9-1.15); Partial Thromboplastin Time 26.2 sec (23.0-31.2)
[2020-08-22] MEDS ORDERED: ONDANSETRON HCL 4 MG/2 ML VIAL IV ONE ×2 (02:15→07:45)
[2020-08-22] MEDS ORDERED: MORPHINE SULF INJ 2 MG/ML SYRINGE 1ML IV ONE ×2 (02:15→07:45)
[2020-08-22 08:14] VITALS: BP 98/56
== END 2020-08-22 02:58 | disposition short-term general hospital (02) ==
LOC: EDBD 20:01 → ER 20:01
DX: R62.7 Adult failure to thrive (principal); I13.0 Hypertensive heart and chronic kidney disease with heart failure and stage 1 through stage 4 chronic kidney disease, or unspecified chronic kidney disease; I50.9 Heart failure, unspecified; N18.9 Chronic kidney disease, unspecified; D53.9 Nutritional anemia, unspecified; E11.22 Type 2 diabetes mellitus with diabetic chronic kidney disease; I12.9 Hypertensive chronic kidney disease with stage 1 through stage 4 chronic kidney disease, or unspecified chronic kidney disease; Z68.22 Body mass index [BMI] 22.0-22.9, adult
CPT/HCPCS: 36415; 71045; 72192; 73560; 73590; 80053; 81001; 83735; 83880; 84443; 84484; 85025; 85379; 85610; 85730; 87040; 87086; 93005; 93971; 96361; 96374; 96375; 96376; 99285; J7040